=== PATIENT | male | born 1955 | race Caucasian/White ===

== ENCOUNTER 2018-08-22 17:23 | Inpatient (IN) | payer OTHER ==
--- NOTE | 2018-08-22 17:48 | PDOC ---
History of Present Illness - General Stated Complaint: COUGH,ELEVATED BLOOD PRESSURE,FEVER Time Seen by Provider: 08/22/18 17:36 - History of Present Illness Initial Comments: 08/22/18 18:34 The patient is a 63 year old male who denies any PMH who presents for evaluation of cough, fever and high blood pressure. The patient is accompanied by his who assists in providing the history. They note that the patient has been experiencing a non-productive cough with associated fevers over the past 6 days. He notes that his was ill with similar symptoms, however her symptoms improved and the patient's symptoms worsened. The patient presented to an urgent care today who then referred the patient to the ED for further evaluation. The patient reports some associated shortness of breath but otherwise denies chills, chest pain, nausea, vomiting, abdominal pain, or changes with urination or bowel movements. Past History - Past Medical History Allergies/Adverse Reactions: Allergies Allergy/AdvReac Type Severity Reaction Status Date / Time No Known Allergies Allergy Verified 08/22/18 18:42 Home Medications: Ambulatory Orders Aspirin [Aspirin EC] 325 mg PO DAILY 08/22/18 Review of Systems - Review of Systems Comments:: 08/22/18 18:37 Constitutional: Body aches, Fevers, Fatigue. HEENT: No Rhinorrhea, nasal congestion, visual changes Cardiovascular: No chest pain, syncope, palpitations, lightheadedness Respiratory: Cough, SOB. No Hemoptysis, Gastrointestinal: No Abdominal pain, Nausea, Vomiting, Constipation, Diarrhea, Melena Genitourinary: No Dysuria, Frequency, Urgency, Hesitancy, Hematuria, Flank pain Musculoskeletal: No Myalgia, arthralgia Skin: No rashes, itching, bruising, pallor Neurologic: No Headache, Dizziness, Numbness, Weakness, or Tingling Psychiatric: No Hallucinations. No SI or HI *Physical Exam - Physical Exam Comments: 08/22/18 18:37 General Appearance: Nourished. In Mild Apparent Distress HEENT: EOMI, ELAINE. No Pharyngeal Erythema, Tonsillar Exudate, Tonsillar Erythema Neck: No Cervical Lymphadenopathy Respiratory/Chest: Course breath sounds bilaterally with bilateral rhonchi. No Wheezing. Cardiovascular: Regular Rhythm, Tachycardic Rate. No Murmur, Gallops, Rubs Gastrointestinal/Abdominal: Normal Bowel Sounds, Soft. No Guarding, Rebound, Tenderness Musculoskeletal: No CVA Tenderness Extremity: Normal Capillary Refill Integumentary: Normal Color, Dry, Warm Neurologic: Fully Oriented, Alert, Normal Mood/Affect, Normal Response, ED Treatment Course - LABORATORY CBC & Chemistry Diagram: 08/22/18 18:00 08/22/18 18:00 Medical Decision Making - Medical Decision Making 08/22/18 18:38 The patient is a 63 year old male who denies any PMH who presents for evaluation of cough, fever and high blood pressure. Differential includes but is not limited to: Sepsis, Pneumonia, Influenza, Infectious, Metabolic Derangement. Given the patient's history and physical exam, we will obtain a cbc, cmp, troponin, coags, blood cultures, ua, urine cultures, chest plain film , ekg. We will treat with iv fluids, tylenol and continue to monitor and reassess while here in the ED. The patient will likely require admission for further management. 08/22/18 20:29 CBC is unremarkable. CMP is unremarkable. Troponin is elevated to 0.12. Influenza swab is positive for Influenza A. The patient's tachycardia did not improve after iv fluids and tylenol. 20mg of IV Cardizem was given with improvement in the patient's HR to 110. Repeat EKG demonstrates aflutter with rvr. An additional 30mg PO cardizem was given as well. We discussed the case with Dr. Culver with Cardiology who does not recommend anti-coagulation at this time until the patient is evaluated by cardiology. We discussed the case with the admitting team who accepted the patient for admission. *DC/Admit/Observation/Transfer Diagnosis at time of Disposition: Influenza, Tachycardia, Elevated troponin - Discharge Dispostion Condition at time of disposition: Stable Decision to Admit order: Yes - Referrals - Patient Instructions - Post Discharge Activity
--- NOTE | 2018-08-22 18:03 | PDOC ---
Attending Attestation - Resident Resident Name: GabrielleGeovani - ED Attending Attestation I have performed the following: I have examined & evaluated the patient, The case was reviewed & discussed with the resident, I agree w/resident's findings & plan, Exceptions are as noted - HPI HPI: 08/22/18 18:15 63-year-old male who has been sick for the last 6 days with fever, nasal congestion, cough and diarrhea. His has similar symptoms but got better and his symptoms persisted so they went to urgent care today and was referred to the emergency department - Physicial Exam PE: 08/22/18 19:06 Diaphoretic, tachycardic 63-year-old male presents with productive cough Head normocephalic/atraumatic. Neck supple CVS tachycardia. Lungs no wheezing appreciated, no crackles, increased respiratory rate Abdomen protuberant,nontender Extremities no erythema, full range of motion. no cva tenderness Skin is warm and dry Neuro patient is alert and oriented 3, moving all extremities, no gross focal neural deficits psych appropriate 08/22/18 19:06 - Medical Decision Making 08/22/18 19:08 HPI This 63-year-old male who has been sick for 6 days with fever, cough, nasal congestion, diarrhea. His had similar symptoms and improved but his symptoms persisted and they went to an urgent care clinic who instructed then to go to the ER Social history: ,works as [employer], does not use tobacco, only surgery was tendon surgery on his legs as a child ROS no abdominal pain and denies any chest pain, +cough.+fever,Nasal congestion ,+diarrhea. He is tachycardic and febrile, but he is not hypoxic. He has a productive cough. Review of labs finds that he has a positive influenza A The heart rate upon arrival was 166 bpm. He had oral temperature of 102.7. Patient is receiving IV Tylenol, IV fluids,tamiflu 08/22/18 19:11 08/22/18 20:05 pt received cardizem IVP to control SVT Reviewing labs finds normal cbc Chemistries revelas elevated LFTs, -pt has elevated troponin which will be trended 08/22/18 20:20 Repeat ekg after cardizem reveals AFIB @ 118bpm. Pt has no previous h/o of atrial fib and needs anticoagulation .However at thsi time the landscape drafter, Dr Sanchez, does not want any anticoagulation given PT will be admitted to telemetry 08/22/18 21:02
[2018-08-22] MEDS ORDERED: ACETAMINOPHEN INJECTION 100 ML IVPB ONE (18:04)
[2018-08-22] MEDS ORDERED: ACETAMINOPHEN 1000 MG/100 ML VIAL (NON FORMULARY) IVPB ONE (18:08)
[2018-08-22] MEDS ORDERED: SODIUM CHLORIDE 1,000 ML IV STA ×2 (18:08)
[2018-08-22 18:36] LABS: BASO % 0.3 % (0-2.0); HEMATOCRIT 41.8 % (35.4-49); HEMOGLOBIN 14.6 GM/dL (11.7-16.9); MCH 29.2 pg (25.7-33.7); MCHC 34.9 g/dl (32.0-35.9); MEAN CELL VOLUME 83.5 fl (80-96); MEAN PLT VOLUME 10.4 fl (7.5-11.1); NEUT % 70.7 % (42.8-82.8); PLATELET COUNT 210 K/MM3 (134-434); RBC 5.01 M/mm3 (4.00-5.60); RDW 13.5 % (11.9-15.9); WHITE BLOOD COUNT 4.3 K/mm3 (4.0-10.0)
[2018-08-22 18:40] LABS: VENOUS PC02 42.4 mmHg (38-52); VENOUS PH 7.43 (7.32-7.42); VENOUS PO2 38.5 mmHg (28-48)
[2018-08-22 18:55] LABS: INR 1.11 (0.83-1.09); PROTHROMBIN TIME (PATIENT) 13.1 SEC (9.7-13.0)
[2018-08-22 18:58] LABS: ACTIVATED PTT 33.4 SECONDS (25.2-36.5)
[2018-08-22] MEDS ORDERED: OSELTAMIVIR PHOSPHATE 75 MG CAPSULE PO ONE (19:05)
[2018-08-22] MEDS ORDERED: dilTIAZem HCL 50 MG/10 ML - 10 ML VIAL IVPUSH ONE (19:24)
[2018-08-22] MEDS ORDERED: OSELTAMIVIR PHOSPHATE 75 MG CAPSULE ONE (19:26)
[2018-08-22] MEDS ORDERED: dilTIAZem HCL 50 MG/10 ML - 10 ML VIAL ONE (19:31)
[2018-08-22 19:59] LABS: ALBUMIN 3.1 g/dl (3.4-5.0); ALK PHOS 46 U/L (45-117); ANION GAP 8 MMOL/L (8-16); BILIRUBIN,TOTAL 0.6 mg/dL (0.2-1); BLOOD UREA NITROGEN 15 mg/dL (7-18); CALCIUM 8.1 mg/dL (8.5-10.1); CHLORIDE 99 mmol/L (98-107); CO2 28 mmol/L (21-32); GLUCOSE,RANDOM 148 mg/dL (74-106); SGOT/AST 66 U/L (15-37); SGPT/ALT 86 U/L (13-61); SODIUM 135 mmol/L (136-145); TOT PROT 6.5 g/dl (6.4-8.2)
[2018-08-22] MEDS ORDERED: dilTIAZem HCL 30 MG TABLET (FP) PO ONE (20:09)
[2018-08-22] MEDS ORDERED: dilTIAZem HCL 30 MG TABLET (FP) ONE ×2 (20:12→23:42)
--- NOTE | 2018-08-22 21:21 | PN ---
Teaching Attending Note Name of Resident: Mari Tucker ATTENDING PHYSICIAN STATEMENT I saw and evaluated the patient. I reviewed the resident's note and discussed the case with the resident. I agree with the resident's findings and plan as documented. SUBJECTIVE: Patient is a 63 year old man with no significant PMH who presents for evaluation of cough, fever and high blood pressure. The patient is accompanied by his who assists in providing the history. They note that the patient has been experiencing a non-productive cough with associated fevers over the past 6 days. He notes that his was ill with similar symptoms, however her symptoms improved and the patient's symptoms worsened. The patient presented to an urgent care today who then referred the patient to the ED for further evaluation. The patient reports some associated shortness of breath but otherwise denies chills, chest pain, vomiting, abdominal pain, or dysuria. OBJECTIVE: Alert Vital Signs Period Temp Pulse Resp BP Sys/Luque Pulse Ox Last 24 Hr 102.7 F 166-169 26-26 148-152/90-115 99-99 HEENT: No Jaundice, eye redness or discharge, PERRLA, EOMI. Normocephalic, atraumatic. External ears are normal and hearing is grossly intact. No nasal discharge. Neck: Supple, nontender. No palpable adenopathy or thyromegaly. No JVD Chest: Good effort. Clear to auscultation and percussion. Heart: Regular. No S3, rub or murmur Abdomen: Not distended, soft, nontender and no HSM. No rebound or guarding. Normoactive bowel sounds. Ext: Peripheral pulses intact. No leg edema. Skin: Warm and dry. No petechiae, rash or ecchymosis. Neuro: Alert. Oriented x3. CN 2-12 grossly intact. Sensation grossly intact in all four extremities and DTR are symmetric. Home Medications Medication Instructions Recorded Aspirin [Aspirin EC] 325 mg PO DAILY 08/22/18 Abnormal Lab Results 08/22/18 08/22/18 08/22/18 18:00 18:00 18:00 Monocytes % 15.0 H PT with INR 13.10 H INR 1.11 H VBG pH 7.43 H Mixed VBG HCO3 28.0 H Sodium Random Glucose Calcium AST ALT Troponin I Albumin Influenza A (Rapid) 08/22/18 08/22/18 18:00 18:00 Monocytes % PT with INR INR VBG pH Mixed VBG HCO3 Sodium 135 L Random Glucose 148 H Calcium 8.1 L AST 66 H ALT 86 H Troponin I 0.12 H Albumin 3.1 L Influenza A (Rapid) Positive A ASSESSMENT AND PLAN: 1. Viral syndrome - Positive for Influenza A and started on Tamiflu. CXR shows cardiomegaly and increased interstitial markings. Treated with IV cardiazem for new onset Afib. No anticoagulation for now as per cardiology. Elevated troponin likely due to demand ischemia -will trend and rule out ACS. Will trend elevated LFTs, get hepatitis serology and upper abdominal sonogram. Will get urine legionella antigen, HbA1c, ECHO, monitor on telemetry and continue gentle IV fluids. No indication for antibiotics at this time. 2. Obesity - Will provide patient all the necessary assistance, counseling and positive reinforcement to facilitate weight loss. Consult greenskeeper supervisor. 3. DVT prophylaxis - Lovenox 40 mg SQ q 24 hours. 4. Advance directives - Full code
[2018-08-22] MEDS ORDERED: ACETAMINOPHEN 1000 MG/100 ML VIAL (NON FORMULARY) IVPB PRN (23:19)
[2018-08-22] MEDS ORDERED: METOPROLOL TARTRATE 5 MG/5 ML VIAL IVPUSH PRN (23:20)
[2018-08-22] MEDS ORDERED: SODIUM CHLORIDE 1,000 ML IV SCH (23:30)
[2018-08-22 23:35] LABS: URINE APPEARANCE CLEAR; URINE BILIRUBIN NEGATIVE (<2.0 mg/dL); URINE COLOR YELLOW; URINE GLUCOSE (UA) 1+ (NEGATIVE); URINE KETONE NEGATIVE (NEGATIVE); URINE LEUK ESTERASE NEGATIVE (NEGATIVE); URINE NITRITE NEGATIVE (NEGATIVE); URINE PROTEIN 1+ (NEGATIVE); URINE UROBILINOGEN NEGATIVE mg/dL (0.2-1.0)
[2018-08-22 23:46] LABS: EPI CELLS RARE /HPF (FEW); URINE MUCUS FEW
--- NOTE | 2018-08-23 00:01 | HP ---
CHIEF COMPLAINT: Fever PCP: None HISTORY OF PRESENT ILLNESS: 63 y/o M with no significant PMHx presents with fever. Patient is a Longshoreman , and the weekend of the , patient felt a dry, nonproductive cough. Shortly after he experienced a fever measuring 103 degrees. He has tried OTC medications which provided minimal relief. Patients had a similar illness however her sx's improved. Patient then visited the Urgent care and was prompted to visit the ED. Additionally he experienced Diarrhea (2 loose BMs x 2 days, No recent Abx use), SOB, Lightheadedness, Dec PO Intake. Patient did not receive a flu shot this year and has no hx of flu. Of note, patient has not followed with a PCP in years. Denies any associated chills, chest pain, nausea, vomiting, constipation. ER course was notable for: (1) Cardizem 30PO, 20IV (2) Tamiflu 75 (3) NS 2L Recent Travel: Denies PAST MEDICAL HISTORY: Denies PAST SURGICAL HISTORY: Tendon sx b/l Social History: Smoking: Quit 25 years ago; 1/2 ppd x 20 years prior Alcohol: Occasionally on Holidays Drugs: Denies Occupation: [employer] Ambulation: Without assistance Residence: House with Family History: Denies Allergies No Known Allergies Allergy (Verified 08/22/18 18:42) HOME MEDICATIONS: Home Medications Medication Instructions Recorded Aspirin [Aspirin EC] 325 mg PO DAILY 08/22/18 REVIEW OF SYSTEMS As per HPI PHYSICAL EXAMINATION Vital Signs - 24 hr 08/22/18 08/22/18 08/22/18 17:30 18:00 18:51 Temperature 102.7 F H Pulse Rate 166 H Pulse Rate [ 169 H Apical] Respiratory 26 H 26 H Rate Blood Pressure 152/115 H Blood Pressure 148/90 [Right Arm] O2 Sat by Pulse 99 99 99 Oximetry (%) 08/22/18 19:36 Temperature Pulse Rate Pulse Rate [ Apical] Respiratory Rate Blood Pressure Blood Pressure [Right Arm] O2 Sat by Pulse 100 Oximetry (%) GENERAL: A&Ox3, NAD HEAD: NCAT EYES: PERRL, EOMI EARS, NOSE, THROAT: Oropharynx clear without exudates. Moist mucous membranes. NECK: No JVD LUNGS: Rhonchi throughout, on 2L NC HEART: Tachycardic, normal S1 and S2 without murmur ABDOMEN: Obese, Soft, nontender, not distended, + bowel sounds, no guarding MUSCULOSKELETAL: No CVA tenderness. EXTREMITIES: 2+ pulses, Trace edema. NEUROLOGICAL: Cranial nerves II-XII intact. Normal speech. SKIN: Warm, dry Laboratory Results - last 24 hr 08/22/18 08/22/18 08/22/18 18:00 18:00 18:00 WBC 4.3 RBC 5.01 Hgb 14.6 Hct 41.8 MCV 83.5 MCH 29.2 MCHC 34.9 RDW 13.5 Plt Count 210 MPV 10.4 Absolute Neuts (auto) 3.1 Neutrophils % 70.7 Lymphocytes % 14.0 Monocytes % 15.0 H Eosinophils % 0.0 Basophils % 0.3 Nucleated RBC % 0 PT with INR 13.10 H INR 1.11 H PTT (Actin FS) 33.4 VBG pH 7.43 H POC VBG pCO2 42.4 POC VBG pO2 38.5 Mixed VBG HCO3 28.0 H Sodium Potassium Chloride Carbon Dioxide Anion Gap BUN Creatinine Creat Clearance w eGFR Random Glucose Lactic Acid Calcium Total Bilirubin AST ALT Alkaline Phosphatase Troponin I Total Protein Albumin Urine Color Urine Appearance Urine pH Ur Specific [place] Urine Protein Urine Glucose (UA) Urine Ketones Urine Blood Urine Nitrite Urine Bilirubin Urine Urobilinogen Ur Leukocyte Esterase Urine WBC (Auto) Urine RBC (Auto) Ur Epithelial Cells Urine Mucus Influenza A (Rapid) Influenza B (Rapid) 08/22/18 08/22/18 08/22/18 18:00 18:00 18:00 WBC RBC Hgb Hct MCV MCH MCHC RDW Plt Count MPV Absolute Neuts (auto) Neutrophils % Lymphocytes % Monocytes % Eosinophils % Basophils % Nucleated RBC % PT with INR INR PTT (Actin FS) VBG pH POC VBG pCO2 POC VBG pO2 Mixed VBG HCO3 Sodium 135 L Potassium 4.0 Chloride 99 Carbon Dioxide 28 Anion Gap 8 BUN 15 Creatinine 1.0 Creat Clearance w eGFR > 60 Random Glucose 148 H Lactic Acid 1.6 Calcium 8.1 L Total Bilirubin 0.6 AST 66 H ALT 86 H Alkaline Phosphatase 46 Troponin I 0.12 H Total Protein 6.5 Albumin 3.1 L Urine Color Urine Appearance Urine pH Ur Specific Elon Urine Protein Urine Glucose (UA) Urine Ketones Urine Blood Urine Nitrite Urine Bilirubin Urine Urobilinogen Ur Leukocyte Esterase Urine WBC (Auto) Urine RBC (Auto) Ur Epithelial Cells Urine Mucus Influenza A (Rapid) Positive A Influenza B (Rapid) Negative 08/22/18 23:20 WBC RBC Hgb Hct MCV MCH MCHC RDW Plt Count MPV Absolute Neuts (auto) Neutrophils % Lymphocytes % Monocytes % Eosinophils % Basophils % Nucleated RBC % PT with INR INR PTT (Actin FS) VBG pH POC VBG pCO2 POC VBG pO2 Mixed VBG HCO3 Sodium Potassium Chloride Carbon Dioxide Anion Gap BUN Creatinine Creat Clearance w eGFR Random Glucose Lactic Acid Calcium Total Bilirubin AST ALT Alkaline Phosphatase Troponin I Total Protein Albumin Urine Color Yellow Urine Appearance Clear Urine pH 5.0 Ur Specific Elon 1.017 Urine Protein 1+ H Urine Glucose (UA) 1+ H Urine Ketones Negative Urine Blood 1+ H Urine Nitrite Negative Urine Bilirubin Negative Urine Urobilinogen Negative Ur Leukocyte Esterase Negative Urine WBC (Auto) 1 Urine RBC (Auto) None Ur Epithelial Cells Rare Urine Mucus Few Influenza A (Rapid) Influenza B (Rapid) ASSESSMENT/PLAN: 63 y/o M with no significant PMHx presents with fever #Fever + Monocytosis -Likely due to Influenza -Lactic acid 1.6 -CXR: No infiltrate, Possibly increased interstitial markings -Influenze Positive and started on Tamiflu in ED -Urine Legionella Antigen, Blood and Urine cx pending -Continue Ofirmev -NS @ 75 mls/hr -No indication for ABx at this time #New Onset AFib -HR 169 on arrival; Given Cardizem and HR 110-120 -[id number] 0, HASBLED 2 -Cardizem 30mg PO Q6H -Lopressor 5mg IV PRN for HR > 120 -ASA 81mg daily -Cardiology (Dr. Wood) Consulted -Echo #Elevated Troponin -Likely Demand -Trend Trop and EKG #Elevated Blood Glucose -Possibly due to DM -UA reveals 1+ Protein, 1+ Glucose -A1c pending #Elevated INR + Transaminitis -Unclear Etiology -RUQ US, Hepatitis panel, UTox pending #FEN -IV NS @ 75 mls/hr -Lytes WNL -Sodium Controlled diet #PPx -DVT: Lovenox Dispo: Admit to Tele Visit type - Emergency Visit Emergency Visit: Yes ED Registration Date: 08/22/18 Care time: The patient presented to the Emergency Department on the above date and was hospitalized for further evaluation of their emergent condition. - New Patient This patient is new to me today: Yes Date on this admission: 08/23/18 - Critical Care Critical Care patient: No
[2018-08-23] MEDS: dilTIAZem HCL 30 MG TABLET (FP) PO SCH ×2 (00:04→06:23)
[2018-08-23 01:12] LABS: COCAINE, UR NEGATIVE ng/ml (CUTOFF=300); METHADONE, UR NEGATIVE ng/ml (CUTOFF=300); OPIATES, URI NEGATIVE ng/ml (CUTOFF=300); PHENCYCLIDINE,URINE NEGATIVE ng/ml (CUTOFF=25); URINE AMPHETAMINES NEGATIVE ng/ml (CUTOFF=500); URINE BARBITURATES NEGATIVE ng/ml (CUTOFF=200); URINE BENZODIAZEPINES NEGATIVE ng/ml (CUTOFF=200)
[2018-08-23] MEDS ORDERED: ACETAMINOPHEN 500 MG TABLET (FP) PO STA (01:14)
[2018-08-23] MEDS ORDERED: ACETAMINOPHEN 325 MG TABLET (FP) ONE (01:15)
[2018-08-23] MEDS ORDERED: dilTIAZem HCL 30 MG TABLET (FP) ONE (06:21)
[2018-08-23 06:32] LABS: BASO % 0.3 % (0-2.0); EOS % 0.2 % (0-4.5); HEMATOCRIT 40.6 % (35.4-49); HEMOGLOBIN 14.3 GM/dL (11.7-16.9); LYMPH % 28.3 % (8-40); MCH 29.7 pg (25.7-33.7); MCHC 35.2 g/dl (32.0-35.9); MEAN CELL VOLUME 84.4 fl (80-96); MEAN PLT VOLUME 10.3 fl (7.5-11.1); MONO % 16.9 % (3.8-10.2); NEUT % 54.3 % (42.8-82.8); PLATELET COUNT 182 K/MM3 (134-434); RBC 4.81 M/mm3 (4.00-5.60); RDW 13.5 % (11.9-15.9); WHITE BLOOD COUNT 4.1 K/mm3 (4.0-10.0)
[2018-08-23 07:11] LABS: ALBUMIN 2.6 g/dl (3.4-5.0); ALK PHOS 37 U/L (45-117); ANION GAP 6 MMOL/L (8-16); BILIRUBIN,TOTAL 0.6 mg/dL (0.2-1); BLOOD UREA NITROGEN 12 mg/dL (7-18); CALCIUM 7.2 mg/dL (8.5-10.1); CHLORIDE 102 mmol/L (98-107); CO2 28 mmol/L (21-32); CREATININE 0.8 mg/dL (0.55-1.3); GLUCOSE,RANDOM 110 mg/dL (74-106); POTASSIUM 3.8 mmol/L (3.5-5.1); SGOT/AST 51 U/L (15-37); SGPT/ALT 67 U/L (13-61); SODIUM 136 mmol/L (136-145); TOT PROT 5.6 g/dl (6.4-8.2)
[2018-08-23] MEDS ORDERED: ASPIRIN 81 MG CHEWABLE TABLETS ONE (08:18)
[2018-08-23] MEDS ORDERED: ENOXAPARIN NA (PORCINE) 40 MG/0.4 ML DISP.SYRIN SQ ONE (08:18)
[2018-08-23] MEDS ORDERED: METOPROLOL TARTRATE 5 MG/5 ML VIAL ONE (09:04)
[2018-08-23] MEDS ORDERED: OSELTAMIVIR PHOSPHATE 75 MG CAPSULE ONE ×2 (09:06→23:02)
[2018-08-23] MEDS: OSELTAMIVIR PHOSPHATE 75 MG CAPSULE PO SCH ×2 (09:17→23:07)
--- NOTE | 2018-08-23 09:41 | EKG ---
Test Reason : Blood Pressure : / mmHG Vent. Rate : 118 BPM Atrial Rate : 394 BPM P-R Int : 000 ms QRS Dur : 084 ms QT Int : 360 ms P-R-T Axes : 000 -07 016 degrees QTc Int : 504 ms ATRIAL FIBRILLATION WITH RAPID VENTRICULAR RESPONSE NONSPECIFIC T WAVE ABNORMALITY ABNORMAL ECG WHEN COMPARED WITH ECG OF 22-AUG-2018 20:05, T WAVE VARIATION Confirmed by ZAHIRA LUTHER MD ([id number]) on 08/23/2018 9:41:04 AM Referred By: Confirmed By:ZAHIRA LUTHER MD
--- NOTE | 2018-08-23 09:42 | EKG ---
Test Reason : Blood Pressure : / mmHG Vent. Rate : 166 BPM Atrial Rate : 170 BPM P-R Int : 000 ms QRS Dur : 100 ms QT Int : 320 ms P-R-T Axes : 000 002 069 degrees QTc Int : 531 ms PROBABLE ATRIAL FLUTTER WITH 2:1 AV BLOCK AND RAPID VENTRICULAR RESPONSE SEPTAL INFARCT , AGE UNDETERMINED ABNORMAL ECG NO PREVIOUS ECGS AVAILABLE Confirmed by ZAHIRA LUTHER MD ([id number]) on 08/23/2018 9:41:46 AM Referred By: Confirmed By:ZAHIRA LUTHER MD
--- NOTE | 2018-08-23 09:51 | PN ---
Teaching Attending Note Name of Resident: Shawna Thacker ATTENDING PHYSICIAN STATEMENT I saw and evaluated the patient. I reviewed the resident's note and discussed the case with the resident. I agree with the resident's findings and plan as documented. SUBJECTIVE: Patient is comfortable with no acute distress. no nausea or vomiting, positive for diarrhea. OBJECTIVE: Vital Signs Temperature 98.2 F 08/23/18 06:15 Pulse Rate 155 H 08/23/18 09:04 Respiratory Rate 19 08/23/18 06:15 Blood Pressure 167/64 08/23/18 09:04 O2 Sat by Pulse Oximetry (%) 99 08/23/18 06:15 GENERAL: AAOx3, NAD HEAD: NCAT, EYES: PERRL, EOMI, ENT: Oropharynx clear without exudates. MMM. NECK: No JVD LUNGS: decreased air entery bl , on 2L NC HEART: Tachycardic, normal S1 and S2 without murmur ABDOMEN: Obese, Soft, nontender, not distended, + bowel sounds, no guarding MUSCULOSKELETAL: No CVA tenderness. EXTREMITIES: 2+ pulses, Trace edema. NEUROLOGICAL: Cranial nerves II-XII intact. Normal speech. SKIN: Warm, dry. CBCD WBC 4.1 K/mm3 (4.0-10.0) 08/23/18 05:00 RBC 4.81 M/mm3 (4.00-5.60) 08/23/18 05:00 Hgb 14.3 GM/dL (11.7-16.9) 08/23/18 05:00 Hct 40.6 % (35.4-49) 08/23/18 05:00 MCV 84.4 fl (80-96) 08/23/18 05:00 MCHC 35.2 g/dl (32.0-35.9) 08/23/18 05:00 RDW 13.5 % (11.9-15.9) 08/23/18 05:00 Plt Count 182 K/MM3 (134-434) 08/23/18 05:00 MPV 10.3 fl (7.5-11.1) 08/23/18 05:00 CMP Sodium 136 mmol/L (136-145) 08/23/18 06:00 Potassium 3.8 mmol/L (3.5-5.1) 08/23/18 06:00 Chloride 102 mmol/L (98-107) 08/23/18 06:00 Carbon Dioxide 28 mmol/L (21-32) 08/23/18 06:00 Anion Gap 6 MMOL/L (8-16) L 08/23/18 06:00 BUN 12 mg/dL (7-18) 08/23/18 06:00 Creatinine 0.8 mg/dL (0.55-1.3) 08/23/18 06:00 Creat Clearance w eGFR > 60 (>60) 08/23/18 06:00 Random Glucose 110 mg/dL (74-106) H 08/23/18 06:00 Calcium 7.2 mg/dL (8.5-10.1) L 08/23/18 06:00 Total Bilirubin 0.6 mg/dL (0.2-1) 08/23/18 06:00 AST 51 U/L (15-37) H 08/23/18 06:00 ALT 67 U/L (13-61) H 08/23/18 06:00 Alkaline Phosphatase 37 U/L (45-117) L 08/23/18 06:00 Total Protein 5.6 g/dl (6.4-8.2) L 08/23/18 06:00 Albumin 2.6 g/dl (3.4-5.0) L 08/23/18 06:00 CARDIAC ENZYMES Troponin I 0.12 ng/ml (0.00-0.05) H 08/22/18 18:00 Current Medications Generic Name Dose Route Start Last Admin Trade Name Freq PRN Reason Stop Dose Admin Acetaminophen 1,000 mg 08/22/18 23:19 Ofirmev Injection - IVPB Q6H PRN FEVER Aspirin 81 mg 08/23/18 10:00 08/23/18 09:05 Asa - PO 81 mg DAILY CARISSA Administration Diltiazem HCl 30 mg 08/23/18 00:00 08/23/18 06:23 Cardizem - PO 30 mg Q6HPO CARISSA Administration Enoxaparin Sodium 40 mg 08/23/18 10:00 08/23/18 09:05 Lovenox - SQ 40 mg DAILY CARISSA Administration Sodium Chloride 1,000 mls @ 75 mls/hr 08/22/18 23:30 08/23/18 00:03 Normal Saline - IV 75 mls/hr ASDIR CARISSA Administration Insulin Aspart 1 vial 08/23/18 11:00 Novolog Vial Sliding Scale - SQ TIDAC [facility] Protocol Metoprolol Tartrate 5 mg 08/22/18 23:20 08/23/18 09:04 Lopressor Injection - IVPUSH 5 mg Q4H PRN Administration HYPERTENSION Oseltamivir Phosphate 75 mg 08/23/18 10:00 08/23/18 09:17 Tamiflu - PO 08/28/18 09:59 75 mg BID CARISSA Administration Home Medications Medication Instructions Recorded Aspirin [Aspirin EC] 325 mg PO DAILY 08/22/18 EKG: Afib with RVR, rat of 118, Qtc 504 ASSESSMENT AND PLAN: Patient is a 63 year old man with no significant PMHx who presented for having cough, fever over the past 6 days and was found to have Afib with RVR. # Afib with RVR: on Cardiazem po and Lopressor IV , cardio consult , will get echo. # Elevated troponins demand ischemia: continue to monitor # Viral syndrome - Positive for Influenza A and started on Tamiflu. CXR shows cardiomegaly and increased interstitial markings. # HTN Uncontrolled: on cardizem and lopressor IV # New onset DM with hemoglobin A1c of 7.0 , with blood sugar of 110's, will start him on ss with coverage # Obesity - with BMi of 36 , Consult tipple tender. DVT prophylaxis - Lovenox 40 mg SQ q 24 hours. Full code
[2018-08-23] MEDS ORDERED: ASPIRIN 81 MG CHEWABLE TABLETS PO SCH (10:00)
[2018-08-23] MEDS ORDERED: ENOXAPARIN NA (PORCINE) 40 MG/0.4 ML DISP.SYRIN SQ SCH (10:00)
--- NOTE | 2018-08-23 10:28 | CON.CARD ---
Consult Consult Specialty:: cardio Reason for Consultation:: elevated troponin - History of Present Illness Chief Complaint: cough, fever History of Present Illness: 63 M here for cough, fever and high blood pressure. cough began 10d ago. no sob he says, if not coughing. denies cp, leg swelling ER notable findings: -temp 102.7 -BP up, to 160/123. -tachycardic to 160 bpm: given 20mg of IV Cardizem was given with improvement in the patient's HR to 110--repeat EKG demonstrates aflutter with rvr. An additional 30mg PO cardizem was given as well. Troponin is elevated to 0.12. Influenza swab is positive for Influenza A. AST/LT mildly elevated PMH: none known - Smoking History Smoking history: Former smoker Have you smoked in the past 12 months: No If you are a former smoker, when did you quit?: 40 years ago Home Medications - Allergies Allergies/Adverse Reactions: Allergies Allergy/AdvReac Type Severity Reaction Status Date / Time No Known Allergies Allergy Verified 08/22/18 18:42 - Home Medications Home Medications: Ambulatory Orders Aspirin [Aspirin EC] 325 mg PO DAILY 08/22/18 Family Disease History - Family Disease History Family History: Denies (no known cmp) Review of Systems - Review of Systems Constitutional: denies: Chills, Fever Eyes: denies: Eye Pain HENT: denies: Nasal Congestion Neck: denies: Stiffness Cardiovascular: denies: Palpitations Respiratory: reports: Cough. denies: Orthopnea, PND Gastrointestinal: denies: Diarrhea, Rectal Bleeding Genitourinary: denies: Burning, Hematuria Musculoskeletal: denies: Muscle Pain Integumentary: denies: Rash Neurological: denies: Numbness, Seizure, Syncope Endocrine: denies: Excessive Sweating Hematology/Lymphatic: denies: Excessive Bleeding Vital Signs: Vital Signs Temperature 98.2 F 08/23/18 06:15 Pulse Rate 155 H 08/23/18 09:04 Respiratory Rate 08/23/18 06:15 Blood Pressure 167/64 08/23/18 09:04 O2 Sat by Pulse Oximetry (%) 99 08/23/18 06:15 Constitutional: Yes: Well Nourished, No Distress Eyes: No: Sclera Icterus HENT: No: Nasal Congestion Neck: No: Decreased ROM Respiratory: Yes: Rhonchi (diffuse). No: Accessory Muscle Use, Wheezes Gastrointestinal: Yes: Normal Bowel Sounds. No: Distention, Hepatomegaly, Palpable Mass, Tenderness Cardiovascular: Yes: Regular Rate and Rhythm JVD: No Carotid Bruit: No PMI: Non-Displaced Heart Sounds: Yes: S1, S2. No: Gallop Murmur: No: Systolic Murmur, Diastolic Murmur Musculoskeletal: Yes: Other (No kyphosis) Extremities: No: Cool, Cyanosis Edema: No Peripheral Pulses: 2+ Left Carotid, 2+ Right Carotid, 2+ Left Doralis Pedis, 2+ Right Dorsalis Pedis Integumentary: No: Jaundice Neurological: Yes: Alert, Oriented (x3) Psychiatric: No: Agitated - Other Data Labs, Other Data: CBC, BMP 08/23/18 05:00 08/23/18 06:00 INR, PTT INR 1.11 (0.83-1.09) H 08/22/18 18:00 Troponin, BNP 08/22/18 18:00 Troponin I 0.12 H Troponin, BNP 08/22/18 18:00 Troponin I 0.12 H Laboratory Tests 08/22/18 08/23/18 08/23/18 18:00 05:00 06:00 WBC 4.1 Hgb 14.3 Plt Count 182 Sodium 136 Potassium 3.8 Carbon Dioxide 28 BUN 12 Creatinine 0.8 Hemoglobin A1c % AST 51 H ALT 67 H Troponin I 0.12 H 08/23/18 06:00 WBC Hgb Plt Count Sodium Potassium Carbon Dioxide BUN Creatinine Hemoglobin A1c % 7.0 H AST ALT Troponin I Assessment/Plan ECG #1: SVT 160s bpm (? long R-P), nonsp ST-Ts (no prior) ECG #2: afib > flutter, nonsp TWAs CXR: some congestive changes. no effusion. no infiltrate. flu A: -per hospitalist -no signs/sx suspicious for chf afib/flutter, rapid HR: -new dx, in setting of acute sepsis/hi fever from flu -HR responded to cardizem in ER, continue 60 q6h as doing -check echo -CHADS VASC 2 (dx HTN urgency, DM here). -d/w'd pt who denies etoh, falls/head trauma, hi risk activities, PUD, GIB or other bleeding history. advised relative risk of cva vs bleed from AC. doesn't want warfarin b/c mother was on this and caused complications. reviewed data with him regarding NOAC vs warfarin--agrees to NOAC. -ok to start AC now as his diast BP is <110...start xarelto (for qd dosing--to max compliance) hypertensive urgency: -no prior known dx of HTN -BP very elevated here initially (diastolic)--now improved -cont diltiazem as ordered -trend BP--low threshold add ARB elev trop -trop 0.12 = indeterminate range -trend serial labs -ECG x 2 non-ischemic. -check echo DM: -new dx -A1c 7.0 -per hospitalist elev LFTs: -transaminases mildly up--viral syndrome? -per hospitalist
[2018-08-23] MEDS ORDERED: dilTIAZem HCL 60 MG TABLET (FP) ONE ×3 (11:50→23:02)
[2018-08-23] MEDS: dilTIAZem HCL 60 MG TABLET (FP) PO SCH ×3 (11:53→23:07)
[2018-08-23] MEDS: SODIUM CHLORIDE 0.45% 1,000 ML IV SCH (11:53)
[2018-08-23] MEDS: INSULIN SLIDING SCALE (NOVOLOG) 1 VIAL SQ SCH ×2 (12:32→16:18)
--- NOTE | 2018-08-23 13:25 | PN ---
Progress Note (short form) - Note Progress Note: ID consult dictated 63 yo man with cough and fever since August 18 with similar symptoms has not had medical care for last several years Influenza A hypoxia- may all be influenza but will add rocephin to cover for CAP repeat cxray cxray congestive changes abnl lfts- most likely due to influenza, check cpk please tachycardia- aflutter with RVR new onset diabetes droplet isolation tamiflu 75 bid cardiology evaluation rocephin Problem List - Problems (1) Influenza A Code(s): J10.1 - FLU DUE TO OTH IDENT INFLUENZA VIRUS W OTH RESP MANIFEST (2) Tachycardia Code(s): R00.0 - TACHYCARDIA, UNSPECIFIED (3) Abnormal LFTs Code(s): R94.5 - ABNORMAL RESULTS OF LIVER FUNCTION STUDIES (4) Pneumonia Code(s): J18.9 - PNEUMONIA, UNSPECIFIED ORGANISM
--- NOTE | 2018-08-23 15:08 | PN ---
Physical Exam: SUBJECTIVE: Patient seen and examined at bedside this morning. Patient presented with cough and fever and was positive for influenza A. At the ED, patient was noted to be tachycardic at 150s. He denies chest pain, SOB, palpitations, nausea, vomiting, abdominal pain, diarrhea, urinary symptoms. OBJECTIVE: Vital Signs Temperature 98.4 F 08/23/18 10:58 Pulse Rate 125 H 08/23/18 10:58 Respiratory Rate 18 08/23/18 10:58 Blood Pressure 148/80 08/23/18 10:58 O2 Sat by Pulse Oximetry (%) 99 08/23/18 10:58 GENERAL: The patient is awake, alert, and fully oriented, on 2L NC HEAD: Normal with no signs of trauma. EYES: PERRLA, EOMI, sclerae anicteric, conjunctivae clear. ENT: Ears normal, nares patent, oropharynx clear without exudates, dry mucous membranes. NECK: Trachea midline, full range of motion, supple. LUNGS:Coarse breath sounds bilaterally. No wheezing or crackles appreciated. HEART: Tachycardic, S1, S2 without murmur, rub or gallop. ABDOMEN: Soft, nontender, nondistended, normoactive bowel sounds. EXTREMITIES: 2+ pulses, warm, well-perfused, no edema NEUROLOGICAL: Cranial nerves II through XII grossly intact. Normal speech, gait not observed. PSYCH: Normal mood, normal affect. SKIN: Warm, dry, normal turgor, no rashes or lesions noted Laboratory Results - last 24 hr 08/22/18 08/22/18 08/22/18 18:00 18:00 18:00 WBC 4.3 RBC 5.01 Hgb 14.6 Hct 41.8 MCV 83.5 MCH 29.2 MCHC 34.9 RDW 13.5 Plt Count 210 MPV 10.4 Absolute Neuts (auto) 3.1 Neutrophils % 70.7 Lymphocytes % 14.0 Monocytes % 15.0 H Eosinophils % 0.0 Basophils % 0.3 Nucleated RBC % 0 PT with INR 13.10 H INR 1.11 H PTT (Actin FS) 33.4 VBG pH 7.43 H POC VBG pCO2 42.4 POC VBG pO2 38.5 Mixed VBG HCO3 28.0 H Sodium Potassium Chloride Carbon Dioxide Anion Gap BUN Creatinine Creat Clearance w eGFR POC Glucometer Random Glucose Hemoglobin A1c % Lactic Acid Calcium Phosphorus Magnesium Total Bilirubin AST ALT Alkaline Phosphatase Troponin I Total Protein Albumin Urine Color Urine Appearance Urine pH Ur Specific [place] Urine Protein Urine Glucose (UA) Urine Ketones Urine Blood Urine Nitrite Urine Bilirubin Urine Urobilinogen Ur Leukocyte Esterase Urine WBC (Auto) Urine RBC (Auto) Ur Epithelial Cells Urine Mucus Opiates Screen Methadone Screen Barbiturate Screen Phencyclidine Screen Ur Amphetamines Screen MDMA (Ecstasy) Screen Benzodiazepines Screen Cocaine Screen U Marijuana (THC) Screen Influenza A (Rapid) Influenza B (Rapid) 08/22/18 08/22/18 08/22/18 18:00 18:00 18:00 WBC RBC Hgb Hct MCV MCH MCHC RDW Plt Count MPV Absolute Neuts (auto) Neutrophils % Lymphocytes % Monocytes % Eosinophils % Basophils % Nucleated RBC % PT with INR INR PTT (Actin FS) VBG pH POC VBG pCO2 POC VBG pO2 Mixed VBG HCO3 Sodium 135 L Potassium 4.0 Chloride 99 Carbon Dioxide 28 Anion Gap 8 BUN 15 Creatinine 1.0 Creat Clearance w eGFR > 60 POC Glucometer Random Glucose 148 H Hemoglobin A1c % Lactic Acid 1.6 Calcium 8.1 L Phosphorus Magnesium Total Bilirubin 0.6 AST 66 H ALT 86 H Alkaline Phosphatase 46 Troponin I 0.12 H Total Protein 6.5 Albumin 3.1 L Urine Color Urine Appearance Urine pH Ur Specific [place] Urine Protein Urine Glucose (UA) Urine Ketones Urine Blood Urine Nitrite Urine Bilirubin Urine Urobilinogen Ur Leukocyte Esterase Urine WBC (Auto) Urine RBC (Auto) Ur Epithelial Cells Urine Mucus Opiates Screen Methadone Screen Barbiturate Screen Phencyclidine Screen Ur Amphetamines Screen MDMA (Ecstasy) Screen Benzodiazepines Screen Cocaine Screen U Marijuana (THC) Screen Influenza A (Rapid) Positive A Influenza B (Rapid) Negative 08/22/18 08/23/18 08/23/18 23:20 00:00 05:00 WBC 4.1 RBC 4.81 Hgb 14.3 Hct 40.6 MCV 84.4 MCH 29.7 MCHC 35.2 RDW 13.5 Plt Count 182 MPV 10.3 Absolute Neuts (auto) 2.2 Neutrophils % 54.3 D Lymphocytes % 28.3 D Monocytes % 16.9 H Eosinophils % 0.2 D Basophils % 0.3 Nucleated RBC % 0 PT with INR INR PTT (Actin FS) VBG pH POC VBG pCO2 POC VBG pO2 Mixed VBG HCO3 Sodium Potassium Chloride Carbon Dioxide Anion Gap BUN Creatinine Creat Clearance w eGFR POC Glucometer Random Glucose Hemoglobin A1c % Lactic Acid Calcium Phosphorus Magnesium Total Bilirubin AST ALT Alkaline Phosphatase Troponin I Total Protein Albumin Urine Color Yellow Urine Appearance Clear Urine pH 5.0 Ur Specific [place] 1.017 Urine Protein 1+ H Urine Glucose (UA) 1+ H Urine Ketones Negative Urine Blood 1+ H Urine Nitrite Negative Urine Bilirubin Negative Urine Urobilinogen Negative Ur Leukocyte Esterase Negative Urine WBC (Auto) 1 Urine RBC (Auto) None Ur Epithelial Cells Rare Urine Mucus Few Opiates Screen Negative Methadone Screen Negative Barbiturate Screen Negative Phencyclidine Screen Negative Ur Amphetamines Screen Negative MDMA (Ecstasy) Screen Negative Benzodiazepines Screen Negative Cocaine Screen Negative U Marijuana (THC) Screen Negative Influenza A (Rapid) Influenza B (Rapid) 08/23/18 08/23/18 08/23/18 06:00 06:00 12:25 WBC RBC Hgb Hct MCV MCH MCHC RDW Plt Count MPV Absolute Neuts (auto) Neutrophils % Lymphocytes % Monocytes % Eosinophils % Basophils % Nucleated RBC % PT with INR INR PTT (Actin FS) VBG pH POC VBG pCO2 POC VBG pO2 Mixed VBG HCO3 Sodium 136 Potassium 3.8 Chloride 102 Carbon Dioxide 28 Anion Gap 6 L BUN 12 Creatinine 0.8 Creat Clearance w eGFR > 60 POC Glucometer [id number] Random Glucose 110 H Hemoglobin A1c % 7.0 H Lactic Acid Calcium 7.2 L Phosphorus 4.0 Magnesium 2.0 Total Bilirubin 0.6 AST 51 H ALT 67 H Alkaline Phosphatase 37 L Troponin I Total Protein 5.6 L Albumin 2.6 L Urine Color Urine Appearance Urine pH Ur Specific [place] Urine Protein Urine Glucose (UA) Urine Ketones Urine Blood Urine Nitrite Urine Bilirubin Urine Urobilinogen Ur Leukocyte Esterase Urine WBC (Auto) Urine RBC (Auto) Ur Epithelial Cells Urine Mucus Opiates Screen Methadone Screen Barbiturate Screen Phencyclidine Screen Ur Amphetamines Screen MDMA (Ecstasy) Screen Benzodiazepines Screen Cocaine Screen U Marijuana (THC) Screen Influenza A (Rapid) Influenza B (Rapid) 08/23/18 13:40 WBC RBC Hgb Hct MCV MCH MCHC RDW Plt Count MPV Absolute Neuts (auto) Neutrophils % Lymphocytes % Monocytes % Eosinophils % Basophils % Nucleated RBC % PT with INR INR PTT (Actin FS) VBG pH POC VBG pCO2 POC VBG pO2 Mixed VBG HCO3 Sodium Potassium Chloride Carbon Dioxide Anion Gap BUN Creatinine Creat Clearance w eGFR POC Glucometer Random Glucose Hemoglobin A1c % Lactic Acid Calcium Phosphorus Magnesium Total Bilirubin AST ALT Alkaline Phosphatase Troponin I 0.07 H Total Protein Albumin Urine Color Urine Appearance Urine pH Ur Specific [place] Urine Protein Urine Glucose (UA) Urine Ketones Urine Blood Urine Nitrite Urine Bilirubin Urine Urobilinogen Ur Leukocyte Esterase Urine WBC (Auto) Urine RBC (Auto) Ur Epithelial Cells Urine Mucus Opiates Screen Methadone Screen Barbiturate Screen Phencyclidine Screen Ur Amphetamines Screen MDMA (Ecstasy) Screen Benzodiazepines Screen Cocaine Screen U Marijuana (THC) Screen Influenza A (Rapid) Influenza B (Rapid) Active Medications Generic Name Dose Route Start Last Admin Trade Name Freq PRN Reason Stop Dose Admin Acetaminophen 1,000 mg 08/22/18 23:19 Ofirmev Injection - IVPB Q6H PRN FEVER Diltiazem HCl 60 mg 08/23/18 10:35 08/23/18 11:53 Cardizem - PO 60 mg Q6HPO CARISSA Administration Sodium Chloride 1,000 mls @ 75 mls/hr 08/23/18 10:45 08/23/18 11:53 1/2 Normal Saline IV 75 mls/hr ASDIR CARISSA Administration Ceftriaxone Sodium 2 gm in 50 mls @ 100 mls/hr 08/23/18 15:15 Ceftriaxone 2 Gm-D5w Bag IVPB DAILY [facility] Protocol Insulin Aspart 1 vial 08/23/18 11:00 08/23/18 12:32 Novolog Vial Sliding Scale - SQ Not Given TIDAC [facility] Protocol Metoprolol Tartrate 5 mg 08/22/18 23:20 08/23/18 09:04 Lopressor Injection - IVPUSH 5 mg Q4H PRN Administration HYPERTENSION Oseltamivir Phosphate 75 mg 08/23/18 10:00 08/23/18 09:17 Tamiflu - PO 08/28/18 09:59 75 mg BID CARISSA Administration Rivaroxaban 20 mg 08/23/18 18:00 Xarelto - PO DAILY@1800 [facility] ASSESSMENT/PLAN: Patient is a 63 year old male with no significant past medical history, presented with fever and nonproductive cough for 6 days. At the ED, patient was noted to have A.fib with RVR #Sepsis 2/2 Flu -Influenza A - positive -ID (Dr. Hammer) consulted. Recommendations appreciated. -Continue Tamiflu 75 mg BID -Ceftriaxone 2gm daily started -CXR: no infiltrates, congestive changes -Blood and urine cx pending -Urine Legionella antigen -IV 1/2 NS @ 75 #New onset Atrial fibrillation -likely triggered by sepsis 2/2 flu -Cardizem increased to 60mg q6h -Echo -Cardiology (Dr. Wood) consulted. Recommendations appreciated. -CHADS VASc - 2 -Will start Xarelto 20mg daily #Hypertension -BP 160/123 -No prior hx of HTN -Cardizem increased to 60mg q6h -Iv Lopressor 5mg q4h PRN for tachycardia. -Cardiology consulted. Recommendations appreciated. -Monitor BP -Low threshold - may add ARB #Troponinemia -0.12 --> 0.07 -likely 2/2 demand ischemia -EKG: no ST-T wave abnormalities -Echo #Hyperglycemia -HbA1c 7.0 -BGM TIDAC -Insulin sliding scale implemented -Will need follow-up as outpatient for further management #Transaminitis -AST/ALT 51/67, improving -RUQ US: Slightly coarse echotexture of the liver, correlate with liver enzymes to rule out mild fatty infiltration. Multiple gallstones without sonographic evidence of acute cholecystitis. -Hepatitis panel -Urine toxicology - negative #FEN -IV 1/2 NS @ 75ml/hr -Electrolytes wnl, routine bmp monitoring -Diabetic diet, low fat and low sodium diet #Prophylaxis -Xarelto 20mg daily #Disposition -full code -admit to tele Visit type - Emergency Visit Emergency Visit: Yes ED Registration Date: 08/22/18 Care time: The patient presented to the Emergency Department on the above date and was hospitalized for further evaluation of their emergent condition. - New Patient This patient is new to me today: Yes Date on this admission: 08/23/18 - Critical Care Critical Care patient: No
[2018-08-23] MEDS ORDERED: CEFTRIAXONE 2 GM/100 ML BAG IVPB ONE (15:46)
[2018-08-23] MEDS: CEFTRIAXONE 2 GM in DEXTROSE 5%-WATER 100 ML IVPB SCH (16:18)
--- NOTE | 2018-08-23 16:50 | CONS ---
DATE OF CONSULTATION: DATE OF DICTATION: 08/23/2018 REQUESTING [place]PUBL[place]: Hospitalist Service CONSULTING PHYSICIAN: Vero Cabrera M.D. HISTORY OF PRESENT ILLNESS: This is a 63-year-old man who comes to the emergency room on the with complaints of fever, cough, since the . He worked [employer], he and his report getting wet and subsequently developing cough and fever. She has improved. He started feeling better but then yesterday morning he felt worse and he came to the emergency room. He has tried [id number] medicines. He has not taken any antibiotics. He has had 2 episodes of diarrhea, that have resolved. He has no vomiting. His appetite has been okay. He has not had any chest pain or dysuria. He has not had medical care for the last several years. In the emergency room, he was noted to be tachycardic, to be in atrial flutter, with rapid ventricular response. He was given Cardizem. His influenza A screen came back positive, and he was started on Tamiflu. PAST MEDICAL HISTORY: Unremarkable. PAST SURGICAL HISTORY: He has had bilateral tendon surgery. MEDICATION: He takes no medications at home. SOCIAL HISTORY: He stopped smoking 25 years ago. Occasional alcohol. No drugs. 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 He lives with his . There has been no recent travel. ALLERGIES: No known drug allergies. REVIEW OF SYSTEMS: As per HPI. PHYSICAL EXAMINATION: VITAL SIGNS: His temperature was 102.7 in the ER. He has a cough. He is otherwise awake and alert. His current temperature is 98.4, pulse 125, blood pressure 148/80, respiratory rate 18. Saturating 99% on 3 L. HEENT: Normocephalic. Eyes are anicteric. NECK: Supple. LUNGS: Bilateral rhonchi. HEART: Regular rate and rhythm. ABDOMEN: Soft, nontender. EXTREMITIES: Without edema. WHITE COUNT: 4.1, hemoglobin 14.3, platelets of 182. His BUN and creatinine are 16 and 0.8. The AST is 51, ALT is 67, alkaline phosphatase is 37, troponin on admission was 0.12. Urinalysis has 1 white cell. Toxicology screen is negative, and influenza A is positive. He had a legionella and pneumococcal urinary antigen that are negative. Blood cultures are pending. A chest x-ray that shows no growth focal infiltrate. IMPRESSION: In summary, this is a 63-year-old man admitted with influenza A, abnormal liver function tests, tachycardia, atrial flutter with rapid ventricular response, and new-onset diabetes with elevated hemoglobin A1c with maintained rapid isolation, continue Tamiflu and obtain cardiology evaluation. Further recommendations to follow. VERO CABRERA M.D. EDI/[id number]
[2018-08-23] MEDS: RIVAROXABAN 20 MG TABLET PO SCH (18:12)
[2018-08-24 01:13] LABS: HEP.C VIRUS AB <0.1 s/co ratio (0.0-0.9)
--- NOTE | 2018-08-24 07:29 | EKG ---
Test Reason : Blood Pressure : / mmHG Vent. Rate : 070 BPM Atrial Rate : 070 BPM P-R Int : 174 ms QRS Dur : 084 ms QT Int : 406 ms P-R-T Axes : 041 -09 016 degrees QTc Int : 438 ms NORMAL SINUS RHYTHM POSSIBLE LEFT ATRIAL ENLARGEMENT T WAVE ABNORMALITY, CONSIDER ANTERIOR ISCHEMIA ABNORMAL ECG WHEN COMPARED WITH ECG OF 22-AUG-2018 20:18, SINUS RHYTHM HAS REPLACED ATRIAL FIBRILLATION VENT. RATE HAS DECREASED BY 48 BPM T WAVE VARIATION Confirmed by ZAHIRA LUTHER MD ([id number]) on 08/23/2018 2:46:17 PM Referred By: Confirmed By:ZAHIRA LUTHER MD
[2018-08-24] MEDS ORDERED: dilTIAZem HCL 60 MG TABLET (FP) ONE (07:51)
[2018-08-24] MEDS: dilTIAZem HCL 60 MG TABLET (FP) PO SCH ×3 (07:54→18:00)
[2018-08-24] MEDS: INSULIN SLIDING SCALE (NOVOLOG) 1 VIAL SQ SCH ×3 (09:00→16:40)
[2018-08-24] MEDS ORDERED: PT OWN MED DRAWER 7, Y5N ONE ×5 (09:08→22:01)
[2018-08-24] MEDS ORDERED: cefTRIAXone SODIUM 1 GM VIAL ONE (09:10)
[2018-08-24] MEDS ORDERED: CEFTRIAXONE 2 GM/100 ML BAG IVPB ONE (09:13)
--- NOTE | 2018-08-24 09:32 | PN ---
Progress Note (short form) - Note Progress Note: Consult Specialty:: cardio Reason for Consultation:: elevated troponin - History of Present Illness Chief Complaint: cough, fever History of Present Illness: feels better today. no chest pain, palps, dizziness, lightheadedness Current Medications Acetaminophen (Ofirmev Injection -) 1,000 mg IVPB Q6H PRN PRN Reason: FEVER Diltiazem HCl (Cardizem -) 60 mg PO Q6HPO [facility] Last Admin: 08/24/18 07:54 Dose: 60 mg Sodium Chloride (1/2 Normal Saline) 1,000 mls @ 75 mls/hr IV ASDIR CARISSA Last Admin: 08/23/18 11:53 Dose: 75 mls/hr Ceftriaxone Sodium 2 gm/ (Dextrose) 100 mls @ 200 mls/hr IVPB DAILY [facility]; Protocol Last Admin: 08/23/18 16:18 Dose: 200 mls/hr Insulin Aspart (Novolog Vial Sliding Scale -) 1 vial SQ TIDAC [facility]; Protocol Last Admin: 08/24/18 09:00 Dose: Not Given Metoprolol Tartrate (Lopressor Injection -) 5 mg IVPUSH Q4H PRN PRN Reason: HYPERTENSION Last Admin: 08/23/18 09:04 Dose: 5 mg Oseltamivir Phosphate (Tamiflu -) 75 mg PO BID [facility] Stop: 08/28/18 09:59 Last Admin: 08/23/18 23:07 Dose: 75 mg Rivaroxaban (Xarelto -) 20 mg PO DAILY@1800 CARISSA Last Admin: 08/23/18 18:12 Dose: 20 mg Vital Signs Period Temp Pulse Resp BP Sys/Luque Pulse Ox Last 24 Hr 98.0 F-98.4 F 75-125 18 143-148/74-80 99-100 Constitutional: Yes: Well Nourished, No Distress Eyes: No: Sclera Icterus HENT: No: Nasal Congestion Neck: No: Decreased ROM Respiratory: Yes: Rhonchi (diffuse). No: Accessory Muscle Use, Wheezes Gastrointestinal: Yes: Normal Bowel Sounds. No: Distention, Hepatomegaly, Palpable Mass, Tenderness Cardiovascular: Yes: Regular Rate and Rhythm JVD: No Carotid Bruit: No PMI: Non-Displaced Heart Sounds: Yes: S1, S2. No: Gallop Murmur: No: Systolic Murmur, Diastolic Murmur Musculoskeletal: Yes: Other (No kyphosis) Extremities: No: Cool, Cyanosis Edema: No Peripheral Pulses: 2+ Left Carotid, 2+ Right Carotid, 2+ Left Doralis Pedis, 2+ Right Dorsalis Pedis Integumentary: No: Jaundice Neurological: Yes: Alert, Oriented (x3) Psychiatric: No: Agitated Assessment/Plan ECG #1: SVT 160s bpm (? long R-P), nonsp ST-Ts (no prior) ECG #2: afib > flutter, nonsp TWAs tele: sinus, PVCs CXR: some congestive changes. no effusion. no infiltrate. flu A: -per hospitalist -no signs/sx suspicious for chf afib/flutter, rapid HR: -new dx, in setting of acute sepsis/hi fever from flu -HR responded to cardizem in ER, continue 60 q6h as doing - now in sinus -echo pending -CHADS VASC 2 (dx HTN urgency, DM here). -d/w'd pt who denies etoh, falls/head trauma, hi risk activities, PUD, GIB or other bleeding history. advised relative risk of cva vs bleed from AC. doesn't want warfarin b/c mother was on this and caused complications. reviewed data with him regarding NOAC vs warfarin--agrees to NOAC. -ok to start AC now as his diast BP is <110...start xarelto (for qd dosing--to max compliance) hypertensive urgency: -no prior known dx of HTN -BP very elevated here initially (diastolic)--now improved -cont diltiazem as ordered -trend BP--low threshold add ARB elev trop -trop 0.12->0.07, not c/w ACS -trend serial labs -ECG x 2 non-ischemic. -echo pending DM: -new dx -A1c 7.0 -per hospitalist elev LFTs: -transaminases mildly up--viral syndrome? -per hospitalist
[2018-08-24] MEDS: CEFTRIAXONE 2 GM in DEXTROSE 5%-WATER 100 ML IVPB SCH (09:47)
[2018-08-24] MEDS: SODIUM CHLORIDE 0.45% 1,000 ML IV SCH (10:28)
[2018-08-24] MEDS: OSELTAMIVIR PHOSPHATE 75 MG CAPSULE PO SCH ×2 (10:28→22:03)
[2018-08-24 10:39] LABS: HEMATOCRIT 39.8 % (35.4-49); HEMOGLOBIN 13.8 GM/dL (11.7-16.9); MCH 29.3 pg (25.7-33.7); MCHC 34.8 g/dl (32.0-35.9); MEAN CELL VOLUME 84.2 fl (80-96); MEAN PLT VOLUME 10.1 fl (7.5-11.1); PLATELET COUNT 204 K/MM3 (134-434); RBC 4.73 M/mm3 (4.00-5.60); RDW 13.7 % (11.9-15.9); WHITE BLOOD COUNT 3.8 K/mm3 (4.0-10.0)
[2018-08-24 11:02] LABS: ANION GAP 8 MMOL/L (8-16); BLOOD UREA NITROGEN 14 mg/dL (7-18); CALCIUM 8.5 mg/dL (8.5-10.1); CHLORIDE 102 mmol/L (98-107); CO2 28 mmol/L (21-32); CREATININE 0.7 mg/dL (0.55-1.3); GLUCOSE,RANDOM 154 mg/dL (74-106); MAGNESIUM 2.2 mg/dL (1.8-2.4); PHOSPHOROUS 2.4 mg/dL (2.5-4.9); POTASSIUM 3.6 mmol/L (3.5-5.1); SODIUM 138 mmol/L (136-145)
[2018-08-24] MEDS ORDERED: NAPH,MB-DB/K PH,MBDB POWDER PACKET PO ONE ×2 (12:05→12:45)
--- NOTE | 2018-08-24 12:18 | ECHO ---
Name: FRANSICO DENSON Exam:Adult Echocardiogram Study Date: 08/24/2018 08:51 AM Age: 63 yrs Reason For Study: A-Fib Height: 67 in Weight: 228 lb BSA: 2.1 m2 MMode/2D Measurements & Calculations IVSd: 1.7 cm Ao root diam: 2.9 cm LVIDd: 3.5 cm LA dimension: 4.4 cm LVIDs: 2.5 cm LVPWd: 1.3 cm EDV(Teich): 49.5 ml LAV (MOD-bp): 59.4 ml ESV(Teich): 22.7 ml Doppler Measurements & Calculations MV E max leoncio: 135.0 cm/sec MR max leoncio: 395.0 cm/sec MV A max leoncio: 38.8 cm/sec MR max P.4 mmHg MV E/A: 3.5 MV dec time: 0.15 sec TR max leoncio: 334.9 cm/sec Med Peak E' Leoncio: 8.3 cm/sec TR max P.1 mmHg Med E/e': 16.3 Lat Peak E' Leoncio: 11.7 cm/sec Lat E/e': 11.5 PI Vmax: 69.2 cm/sec Procedure A complete two-dimensional transthoracic echocardiogram was performed (2D, M-mode, Doppler and color flow Doppler). Left Ventricle The left ventricular size, thickness and function are normal. Ejection Fraction = 65%. The transmitra l spectral Doppler flow pattern is suggestive of impaired LV relaxation. The left ventricular wall paula on is normal. Right Ventricle The right ventricle is normal in size and function. Atria The left atrium is mildly dilated. Right atrial size is normal. Mitral Valve There is mild mitral annular calcification. There is trace to mild mitral regurgitation. Tricuspid Valve The tricuspid valve is not well visualized, but is grossly normal. There is mild to moderate tricuspi d regurgitation. Right ventricular systolic pressure is elevated at 50 mmhg. There is moderate pulmonar y hypertension. Aortic Valve The aortic valve is normal in structure and function. Pulmonic Valve The pulmonic valve is not well seen, but is grossly normal. Great Vessels The aortic root is normal size. Normal aortic arch, descending and ascending aorta. Pericardium/Pleura There is no pericardial effusion. There is no pleural effusion. Interpretation Summary Ejection Fraction = 65%. The transmitral spectral Doppler flow pattern is suggestive of impaired LV relaxation. The left atrium is mildly dilated. There is mild mitral annular calcification. There is trace to mild mitral regurgitation. There is mild to moderate tricuspid regurgitation. Right ventricular systolic pressure is elevated at 50 mmhg. There is moderate pulmonary hypertension. MD Erich Spears 08/24/2018 12:18 PM
--- NOTE | 2018-08-24 16:21 | PN ---
Physical Exam: SUBJECTIVE: Patient seen and examined at bedside this morning. No acute events overnight. Patient looking and feeling better today. No fever or chills overnight. Patient reports improvement of cough. Heart rate has been stable all day, still with elevated blood pressure. OBJECTIVE: Vital Signs Period Temp Pulse Resp BP Sys/Luque Pulse Ox Last 24 Hr 98.0 F-98.4 F 74-75 20-20 143-162/74-84 97-100 GENERAL: The patient is awake, alert, and fully oriented, not in distress HEAD: Normal with no signs of trauma. EYES: PERRLA, EOMI, sclerae anicteric, conjunctivae clear. ENT: Ears normal, nares patent, oropharynx clear without exudates, moist mucous membranes. NECK: Trachea midline, full range of motion, supple. LUNGS:+rhonchi bilaterally. No wheezing or crackles appreciated. HEART: Regular rate and rhythm, S1, S2 without murmur, rub or gallop. ABDOMEN: Soft, nontender, nondistended, normoactive bowel sounds. EXTREMITIES: 2+ pulses, warm, well-perfused, no edema NEUROLOGICAL: Cranial nerves II through XII grossly intact. Normal speech, gait not observed. PSYCH: Normal mood, normal affect. SKIN: Warm, dry, normal turgor, no rashes or lesions noted Laboratory Results - last 24 hr 08/23/18 08/23/18 08/23/18 05:40 05:40 16:11 WBC RBC Hgb Hct MCV MCH MCHC RDW Plt Count MPV Sodium Potassium Chloride Carbon Dioxide Anion Gap BUN Creatinine Creat Clearance w eGFR POC Glucometer 117.68631 Random Glucose Calcium Phosphorus Magnesium Creatine Kinase Creatine Kinase Index CK-MB (CK-2) Hepatitis A IgM Ab Negative Hep Bs Antigen Negative Hep B Core IgM Ab Negative Negative Hepatitis C Antibody <0.1 08/24/18 08/24/18 08/24/18 06:00 08:02 10:12 WBC 3.8 L RBC 4.73 Hgb 13.8 Hct 39.8 MCV 84.2 MCH 29.3 MCHC 34.8 RDW 13.7 Plt Count 204 MPV 10.1 Sodium Potassium Chloride Carbon Dioxide Anion Gap BUN Creatinine Creat Clearance w eGFR POC Glucometer [phone] Random Glucose Calcium Phosphorus Magnesium Creatine Kinase 298 Creatine Kinase Index 0.3 CK-MB (CK-2) 1.1 Hepatitis A IgM Ab Hep Bs Antigen Hep B Core IgM Ab Hepatitis C Antibody 08/24/18 08/24/18 10:12 11:58 WBC RBC Hgb Hct MCV MCH MCHC RDW Plt Count MPV Sodium 138 Potassium 3.6 Chloride 102 Carbon Dioxide 28 Anion Gap 8 BUN 14 Creatinine 0.7 Creat Clearance w eGFR > 60 POC Glucometer 134.16123 Random Glucose 154 H Calcium 8.5 Phosphorus 2.4 L Magnesium 2.2 Creatine Kinase Creatine Kinase Index CK-MB (CK-2) Hepatitis A IgM Ab Hep Bs Antigen Hep B Core IgM Ab Hepatitis C Antibody Active Medications Generic Name Dose Route Start Last Admin Trade Name Freq PRN Reason Stop Dose Admin Acetaminophen 1,000 mg 08/22/18 23:19 Ofirmev Injection - IVPB Q6H PRN FEVER Diltiazem HCl 60 mg 08/23/18 10:35 08/24/18 12:08 Cardizem - PO 60 mg Q6HPO CARISSA Administration Sodium Chloride 1,000 mls @ 75 mls/hr 08/23/18 10:45 08/24/18 10:28 1/2 Normal Saline IV 75 mls/hr ASDIR CARISSA Administration Ceftriaxone Sodium 2 gm/ 100 mls @ 200 mls/hr 08/23/18 15:30 08/24/18 09:47 Dextrose IVPB 200 mls/hr DAILY CARISSA Administration Protocol Insulin Aspart 1 vial 08/23/18 11:00 08/24/18 12:00 Novolog Vial Sliding Scale - SQ Not Given TIDAC REPLACED BY [facility] Protocol Metoprolol Tartrate 5 mg 08/22/18 23:20 08/23/18 09:04 Lopressor Injection - IVPUSH 5 mg Q4H PRN Administration HYPERTENSION Oseltamivir Phosphate 75 mg 08/23/18 10:00 08/24/18 10:28 Tamiflu - PO 08/28/18 09:59 75 mg BID CARISSA Administration Rivaroxaban 20 mg 08/23/18 18:00 08/23/18 18:12 Xarelto - PO 20 mg DAILY@1800 CARISSA Administration ASSESSMENT/PLAN: Patient is a 63 year old male with no significant past medical history, presented with fever and nonproductive cough for 6 days. At the ED, patient was noted to have A.fib with RVR #Sepsis 2/2 Flu: improving -Influenza A - positive -ID (Dr. Hammer) consulted. Recommendations appreciated. -Continue Tamiflu 75 mg BID day 2 -Ceftriaxone 2gm daily day 2 -CXR: no infiltrates, congestive changes -Blood and urine cx - no growth -Urine Legionella antigen - negative -IV 1/2 NS @ 75 #New onset Atrial fibrillation -likely triggered by sepsis 2/2 flu -Cardizem increased to 60mg q6h -Will start Cardizem 240mg daily dosing tomorrow and stop 60mg q6h -Echo - EF 65%. The transmitral spectral Doppler flow pattern is suggestive of impaired LV relaxation. LA is mildly dilated. Trace to mild MR. Mild to moderate TR. RV systolic pressure is elevated at 50mmHg. There is moderate pulmonary HTN. -Cardiology (Dr. Wood) consulted. Recommendations appreciated. -CHADS VASc - 2 -Will start Xarelto 20mg daily #Hypertension -No prior hx of HTN -Cardizem 60mg q6h -Iv Lopressor 5mg q4h PRN for tachycardia. -Cardiology consulted. Recommendations appreciated. -Monitor BP -Low threshold - may add ARB #Troponinemia -0.12 --> 0.07 -likely 2/2 demand ischemia -EKG: no ST-T wave abnormalities -Echo #Hyperglycemia -HbA1c 7.0 -BGM TIDAC -Insulin sliding scale implemented -Will need follow-up as outpatient for further management #Transaminitis -AST/ALT 51/67, improving -RUQ US: Slightly coarse echotexture of the liver, correlate with liver enzymes to rule out mild fatty infiltration. Multiple gallstones without sonographic evidence of acute cholecystitis. -Hepatitis panel - negative -Urine toxicology - negative #FEN -IV 1/2 NS @ 75ml/hr -Electrolytes wnl, routine bmp monitoring -Diabetic diet, low fat and low sodium diet #Prophylaxis -Xarelto 20mg daily #Disposition -full code -admit to tele Visit type - Emergency Visit Emergency Visit: Yes ED Registration Date: 08/22/18 Care time: The patient presented to the Emergency Department on the above date and was hospitalized for further evaluation of their emergent condition. - New Patient This patient is new to me today: No - Critical Care Critical Care patient: No
--- NOTE | 2018-08-24 16:24 | PN ---
Progress Note (short form) - Note Progress Note: continued cough afebrile remains on oxygen Vital Signs Period Temp Pulse Resp BP Sys/Luque Pulse Ox Last 24 Hr 98.0 F-98.4 F 74-75 20-20 143-162/74-84 97-100 cor-rrr lungs bilateral rhonchi abd soft,nt ext no edema CBC, BMP 08/24/18 10:12 08/24/18 10:12 Microbiology 08/22/18 23:20 Urine - Urine Clean Catch Urine Culture - Final NO GROWTH OBTAINED 08/22/18 18:00 Blood - Peripheral Venous Blood Culture - Preliminary NO GROWTH OBTAINED AFTER 24 HOURS, INCUBATION TO CONTINUE FOR 4 DAYS. 08/22/18 18:00 Blood - Peripheral Venous Blood Culture - Preliminary NO GROWTH OBTAINED AFTER 24 HOURS, INCUBATION TO CONTINUE FOR 4 DAYS. 08/23/18 00:00 Urine For Antigen Detection Legionella Antigen - Final 08/23/18 00:00 Urine For Antigen Detection Streptococcus pneumoniae Antigen (M - Final cxray- congestion, cannot r/o Right basilar infiltrate Current Medications Acetaminophen (Ofirmev Injection -) 1,000 mg IVPB Q6H PRN PRN Reason: FEVER Diltiazem HCl (Cardizem -) 60 mg PO Q6HPO CARISSA Last Admin: 08/24/18 12:08 Dose: 60 mg Sodium Chloride (1/2 Normal Saline) 1,000 mls @ 75 mls/hr IV ASDIR CARISSA Last Admin: 08/24/18 10:28 Dose: 75 mls/hr Ceftriaxone Sodium 2 gm/ (Dextrose) 100 mls @ 200 mls/hr IVPB DAILY CARISSA; Protocol Last Admin: 08/24/18 09:47 Dose: 200 mls/hr Insulin Aspart (Novolog Vial Sliding Scale -) 1 vial SQ TIDAC CARISSA; Protocol Last Admin: 08/24/18 12:00 Dose: Not Given Metoprolol Tartrate (Lopressor Injection -) 5 mg IVPUSH Q4H PRN PRN Reason: HYPERTENSION Last Admin: 08/23/18 09:04 Dose: 5 mg Oseltamivir Phosphate (Tamiflu -) 75 mg PO BID CARISSA Stop: 08/28/18 09:59 Last Admin: 08/24/18 10:28 Dose: 75 mg Rivaroxaban (Xarelto -) 20 mg PO DAILY@1800 CARISSA Last Admin: 08/23/18 18:12 Dose: 20 mg a/p Influenza A hypoxia- repeat cxray with question of right basilar infiltrate- continue rocephin abnl lfts- most likely due to influenza-repeat lfts in am, sono noted- galllstones, ?fatty liver tachycardia- aflutter with RVR new onset diabetes droplet isolation tamiflu 75 bid day #2 cardiology evaluation noted rocephin day #2 d/w at length Problem List - Problems (1) Influenza A Code(s): J10.1 - FLU DUE TO OTH IDENT INFLUENZA VIRUS W OTH RESP MANIFEST (2) Tachycardia Code(s): R00.0 - TACHYCARDIA, UNSPECIFIED (3) Abnormal LFTs Code(s): R94.5 - ABNORMAL RESULTS OF LIVER FUNCTION STUDIES (4) Pneumonia Code(s): J18.9 - PNEUMONIA, UNSPECIFIED ORGANISM
[2018-08-24] MEDS: RIVAROXABAN 20 MG TABLET PO SCH (17:59)
--- NOTE | 2018-08-24 19:21 | PN ---
Teaching Attending Note Name of Resident: Shawna Thacker ATTENDING PHYSICIAN STATEMENT I saw and evaluated the patient. I reviewed the resident's note and discussed the case with the resident. I agree with the resident's findings and plan as documented. SUBJECTIVE: Patient is feeling better today. no fever or chills, no shortness of breath. OBJECTIVE: Vital Signs Temperature 98.4 F 08/24/18 19:04 Pulse Rate 74 08/24/18 19:04 Respiratory Rate 16 08/24/18 19:04 Blood Pressure 146/87 08/24/18 19:04 O2 Sat by Pulse Oximetry (%) 97 08/24/18 19:04 GENERAL: AAOx3, NAD HEAD: NCAT, EYES: PERRL, EOMI, ENT: Oropharynx clear without exudates. MMM. NECK: No JVD LUNGS: decreased air entery bl , on 2L NC HEART: Tachycardic, normal S1 and S2 without murmur ABDOMEN: Obese, Soft, nontender, not distended, positive for BS, no guarding MUSCULOSKELETAL: No CVA tenderness. EXTREMITIES: 2+ pulses, Trace edema. NEUROLOGICAL: Cranial nerves II-XII intact. Normal speech. SKIN: Warm, dry. CBCD WBC 3.8 K/mm3 (4.0-10.0) L 08/24/18 10:12 RBC 4.73 M/mm3 (4.00-5.60) 08/24/18 10:12 Hgb 13.8 GM/dL (11.7-16.9) 08/24/18 10:12 Hct 39.8 % (35.4-49) 08/24/18 10:12 MCV 84.2 fl (80-96) 08/24/18 10:12 MCHC 34.8 g/dl (32.0-35.9) 08/24/18 10:12 RDW 13.7 % (11.9-15.9) 08/24/18 10:12 Plt Count 204 K/MM3 (134-434) 08/24/18 10:12 MPV 10.1 fl (7.5-11.1) 08/24/18 10:12 CMP Sodium 138 mmol/L (136-145) 08/24/18 10:12 Potassium 3.6 mmol/L (3.5-5.1) 08/24/18 10:12 Chloride 102 mmol/L (98-107) 08/24/18 10:12 Carbon Dioxide 28 mmol/L (21-32) 08/24/18 10:12 Anion Gap 8 MMOL/L (8-16) 08/24/18 10:12 BUN 14 mg/dL (7-18) 08/24/18 10:12 Creatinine 0.7 mg/dL (0.55-1.3) 08/24/18 10:12 Creat Clearance w eGFR > 60 (>60) 08/24/18 10:12 Random Glucose 154 mg/dL (74-106) H 08/24/18 10:12 Calcium 8.5 mg/dL (8.5-10.1) 08/24/18 10:12 Total Bilirubin 0.6 mg/dL (0.2-1) 08/23/18 06:00 AST 51 U/L (15-37) H 08/23/18 06:00 ALT 67 U/L (13-61) H 08/23/18 06:00 Alkaline Phosphatase 37 U/L (45-117) L 08/23/18 06:00 Total Protein 5.6 g/dl (6.4-8.2) L 08/23/18 06:00 Albumin 2.6 g/dl (3.4-5.0) L 08/23/18 06:00 CARDIAC ENZYMES Creatine Kinase 298 IU/L (26-308) 08/24/18 06:00 Troponin I 0.07 ng/ml (0.00-0.05) H 08/23/18 13:40 Current Medications Generic Name Dose Route Start Last Admin Trade Name Johnnieq PRN Reason Stop Dose Admin Acetaminophen 1,000 mg 08/22/18 23:19 Ofirmev Injection - IVPB Q6H PRN FEVER Diltiazem HCl 240 mg 08/25/18 10:00 Cardizem Cd - PO DAILY CARISSA Sodium Chloride 1,000 mls @ 75 mls/hr 08/23/18 10:45 08/24/18 10:28 1/2 Normal Saline IV 75 mls/hr ASDIR CARISSA Administration Ceftriaxone Sodium 2 gm/ 100 mls @ 200 mls/hr 08/23/18 15:30 08/24/18 09:47 Dextrose IVPB 200 mls/hr DAILY CARISSA Administration Protocol Insulin Aspart 1 vial 08/23/18 11:00 08/24/18 16:40 Novolog Vial Sliding Scale - SQ Not Given TIDAC [facility] Protocol Metoprolol Tartrate 5 mg 08/22/18 23:20 08/23/18 09:04 Lopressor Injection - IVPUSH 5 mg Q4H PRN Administration HYPERTENSION Oseltamivir Phosphate 75 mg 08/23/18 10:00 08/24/18 10:28 Tamiflu - PO 08/28/18 09:59 75 mg BID CARISSA Administration Rivaroxaban 20 mg 08/23/18 18:00 08/24/18 17:59 Xarelto - PO 20 mg DAILY@1800 CARISSA Administration Home Medications Medication Instructions Recorded Aspirin [Aspirin EC] 325 mg PO DAILY 08/22/18 EKG: Afib with RVR, rat of 118, Qtc 504 ASSESSMENT AND PLAN: Patient is a 63 year old man with no significant PMHx who presented for having cough, fever over the past 6 days and was found to have Afib with RVR. # Viral syndrome - Positive for Influenza A and started on Tamiflu continue, patient is doing better continue . CXR shows cardiomegaly and increased interstitial markings. Also on Rocephin IV as per ID. Incentive spirometer continue. # Afib with RVR: on xarelto continue , Cardiazem po and Lopressor IV , cardio consult , echo. report reviewed pulmonary htn 50mmhg # Elevated troponins demand ischemia: continue to monitor # HTN Uncontrolled: on cardizem and lopressor IV # New onset DM with hemoglobin A1c of 7.0 , with blood sugar of 110's, ss with coverage # Obesity - with BMi of 36 , Consult forestry worker. DVT prophylaxis - xarelto Full code
[2018-08-25] MEDS ORDERED: ATROPINE SO4 0.4 MG/1 ML VIAL IVPUSH ONE (05:51)
[2018-08-25] MEDS ORDERED: ATROPINE SO4 0.4 MG/1 ML VIAL IVPUSH PRN (05:52)
[2018-08-25] MEDS: INSULIN SLIDING SCALE (NOVOLOG) 1 VIAL SQ SCH ×3 (06:02→16:43)
[2018-08-25 06:15] LABS: BASO % 0.3 % (0-2.0); EOS % 3.4 % (0-4.5); HEMATOCRIT 43.6 % (35.4-49); HEMOGLOBIN 14.1 GM/dL (11.7-16.9); LYMPH % 29.6 % (8-40); MCH 27.5 pg (25.7-33.7); MCHC 32.3 g/dl (32.0-35.9); MEAN CELL VOLUME 85.2 fl (80-96); MEAN PLT VOLUME 9.7 fl (7.5-11.1); MONO % 15.1 % (3.8-10.2); NEUT % 51.6 % (42.8-82.8); PLATELET COUNT 224 K/MM3 (134-434); RBC 5.12 M/mm3 (4.00-5.60); RDW 13.7 % (11.9-15.9); WHITE BLOOD COUNT 5.9 K/mm3 (4.0-10.0)
--- NOTE | 2018-08-25 06:34 | HOSP ---
Physical Examination Vital Signs: Vital Signs Temperature 98.2 F 08/25/18 01:00 Pulse Rate 70 08/25/18 01:00 Respiratory Rate 18 08/25/18 01:00 Blood Pressure 152/83 08/25/18 01:00 O2 Sat by Pulse Oximetry (%) 96 08/24/18 21:00 Labs: CBC, BMP 08/24/18 10:12 08/24/18 10:12 <Mulugeta Slater - Last Filed: 08/25/18 07:09> Vital Signs: Vital Signs Temperature 97.9 F 08/27/18 14:00 Pulse Rate 103 H 08/27/18 17:05 Respiratory Rate 8 L 08/27/18 14:00 Blood Pressure 144/75 08/27/18 14:00 O2 Sat by Pulse Oximetry (%) 97 08/27/18 17:05 Labs: CBC, BMP 08/27/18 06:00 08/27/18 06:00 <Calvin Florentino - Last Filed: 09/06/18 19:51> Hospitalist Encounter Assessment: paged by nurse. pt having multiple episodes of intermittent regino (25-30s) to tachy (140s) arrhythmias on tele. pt has been asymptomatic however w/ no complaints of cp, sob, TAM, etc... Pt did receive his cardizem today at 6pm but had multiple episodes of bradycardia and breakthrough RVR while off of medication per monitors BP 164/97, HR 130s , 95% 2L NC PE lying in bed comfortable irregularly irregular S1 S2 no m/r/g crackles b/l at bases R>L (pt on IVF) Rhythm strips reviewed. P waves appear to be of similar morphology and are followed by QRS Does not appear to be Third degree block. Possibly a 2nd degree type 2 AV block vs Sick Sinus vs. other tachy-regino syndrome. EKG STAT - A-fib w/ RVR 119, QTC 483, no ST- T wave or ischemic changes noted. pacer pads atropine at bedside hold off on IVF Hold further doses of CCB while pt BP holding and asymptomatic until Cardio recs. ICU aware of pt; will call back pending cardio recs <Mulugeta Slater - Last Filed: 08/25/18 07:09> Outcome: Seen and examined;agree with all the above aside form as edited by me in my own note. Thank you. Was present for all vital parts of encounter; plan discussed with me. Agree with above as documented by the resident. <Calvin Florentino - Last Filed: 09/06/18 19:51> Visit type - Emergency Visit Emergency Visit: Yes ED Registration Date: 08/22/18 Care time: The patient presented to the Emergency Department on the above date and was hospitalized for further evaluation of their emergent condition. - New Patient This patient is new to me today: Yes Date on this admission: 08/25/18 - Critical Care Critical Care patient: No <Mulugeta Slater - Last Filed: 08/25/18 07:09>
[2018-08-25 06:36] LABS: ANION GAP 6 MMOL/L (8-16); BLOOD UREA NITROGEN 10 mg/dL (7-18); CALCIUM 8.3 mg/dL (8.5-10.1); CHLORIDE 102 mmol/L (98-107); CO2 32 mmol/L (21-32); CREATININE 0.8 mg/dL (0.55-1.3); GLUCOSE,RANDOM 123 mg/dL (74-106); MAGNESIUM 1.9 mg/dL (1.8-2.4); SODIUM 140 mmol/L (136-145)
[2018-08-25] MEDS ORDERED: DEXTROSE 5%-WATER 100 ML IVPB ONE (09:47)
[2018-08-25] MEDS ORDERED: PT OWN MED DRAWER 7, Y5N ONE ×4 (09:47→21:20)
[2018-08-25] MEDS ORDERED: dilTIAZem HCL 30 MG TABLET (FP) PO ONE (09:48)
[2018-08-25] MEDS: OSELTAMIVIR PHOSPHATE 75 MG CAPSULE PO SCH ×2 (09:54→21:21)
[2018-08-25] MEDS: CEFTRIAXONE 2 GM in DEXTROSE 5%-WATER 100 ML IVPB SCH (09:54)
--- NOTE | 2018-08-25 10:58 | EKG ---
Test Reason : Blood Pressure : / mmHG Vent. Rate : 141 BPM Atrial Rate : 114 BPM P-R Int : 000 ms QRS Dur : 088 ms QT Int : 306 ms P-R-T Axes : 000 -06 010 degrees QTc Int : 468 ms ATRIAL FIBRILLATION WITH RAPID VENTRICULAR RESPONSE NONSPECIFIC ST AND T WAVE ABNORMALITY ABNORMAL ECG WHEN COMPARED WITH ECG OF 25-AUG-2018 05:36, NO SIGNIFICANT CHANGE WAS FOUND Confirmed by MERI MCDONALD MD ([id number]) on 08/25/2018 10:58:04 AM Referred By: JIMMIE DIAS Confirmed By:MERI MCDONALD MD
--- NOTE | 2018-08-25 11:38 | PN ---
Progress Note (short form) - Note Progress Note: Consult Specialty:: cardio Reason for Consultation:: elevated troponin - History of Present Illness Chief Complaint: cough, fever History of Present Illness: no chest pain, palps dizziness, lightheadedness Current Medications Acetaminophen (Ofirmev Injection -) 1,000 mg IVPB Q6H PRN PRN Reason: FEVER Atropine Sulfate (Atropine Injection -) 0.4 mg IVPUSH ONCE PRN PRN Reason: MAP<65mm Hg OR SBP <90 Diltiazem HCl (Cardizem Cd -) 240 mg PO DAILY [facility] Ceftriaxone Sodium 2 gm/ (Dextrose) 100 mls @ 200 mls/hr IVPB DAILY [facility]; Protocol Last Admin: 08/25/18 09:54 Dose: 200 mls/hr Insulin Aspart (Novolog Vial Sliding Scale -) 1 vial SQ TIDAC [facility]; Protocol Last Admin: 08/25/18 11:13 Dose: Not Given Metoprolol Tartrate (Lopressor Injection -) 5 mg IVPUSH Q4H PRN PRN Reason: HYPERTENSION Last Admin: 08/23/18 09:04 Dose: 5 mg Oseltamivir Phosphate (Tamiflu -) 75 mg PO BID [facility] Stop: 08/28/18 09:59 Last Admin: 08/25/18 09:54 Dose: 75 mg Rivaroxaban (Xarelto -) 20 mg PO DAILY@1800 CARISSA Last Admin: 08/24/18 17:59 Dose: 20 mg Vital Signs Period Temp Pulse Resp BP Sys/Luque Pulse Ox Last 24 Hr 97.9 F-98.4 F 70-153 16-20 146-164/73-99 94-97 Constitutional: Yes: Well Nourished, No Distress Eyes: No: Sclera Icterus HENT: No: Nasal Congestion Neck: No: Decreased ROM Respiratory: Yes: Rhonchi (diffuse). No: Accessory Muscle Use, Wheezes Gastrointestinal: Yes: Normal Bowel Sounds. No: Distention, Hepatomegaly, Palpable Mass, Tenderness Cardiovascular: Yes: Regular Rate and Rhythm JVD: No Carotid Bruit: No PMI: Non-Displaced Heart Sounds: Yes: S1, S2. No: Gallop Murmur: No: Systolic Murmur, Diastolic Murmur Musculoskeletal: Yes: Other (No kyphosis) Extremities: No: Cool, Cyanosis Edema: No Peripheral Pulses: 2+ Left Carotid, 2+ Right Carotid, 2+ Left Doralis Pedis, 2+ Right Dorsalis Pedis Integumentary: No: Jaundice Neurological: Yes: Alert, Oriented (x3) Psychiatric: No: Agitated Assessment/Plan ECG #1: SVT 160s bpm (? long R-P), nonsp ST-Ts (no prior) ECG #2: afib > flutter, nonsp TWAs tele: afib rate 130s-140s, occasional episodes 30 seconds of HR 30s CXR: some congestive changes. no effusion. no infiltrate. echo nl LV function, impaired relaxation, tr to mild MR, mild to mod TR, RVSP elevated 50 mmHg, mod pulm HTN flu A: -per hospitalist -no signs/sx suspicious for chf afib/flutter, rapid HR: -new dx, in setting of acute sepsis/hi fever from flu -HR responded to cardizem in ER, continue 60 q6h as doing - was in sinus, now in afib wtih RVR and occasional brief episodes with HR 30s-40s, has not received cardizem today - would restart cardizem given rapid rate, monitor on tele for episodes of slow ventricular rate with afib -echo nl LV function -CHADS VASC 2 (dx HTN urgency, DM here). -d/w'd pt who denies etoh, falls/head trauma, hi risk activities, PUD, GIB or other bleeding history. advised relative risk of cva vs bleed from AC. doesn't want warfarin b/c mother was on this and caused complications. reviewed data with him regarding NOAC vs warfarin--agrees to NOAC. - continue xarelto hypertensive urgency: -no prior known dx of HTN -BP very elevated here initially (diastolic)--now improved -cont diltiazem as ordered -trend BP--low threshold add ARB elev trop -trop indeterminate range, flat trend, not c/w ACS -ECG x 2 non-ischemic. DM: -new dx -A1c 7.0 -per hospitalist elev LFTs: -transaminases mildly up--viral syndrome? -per hospitalist pulm HTN - noted on echo, moderate - consider sleep study
[2018-08-25] MEDS: dilTIAZem HCL 60 MG TABLET (FP) PO SCH ×3 (11:59→23:28)
[2018-08-25 12:30] VITALS: BMI 35.4
[2018-08-25] MEDS ORDERED: dilTIAZem HCL 50 MG/10 ML - 10 ML VIAL IVPUSH PRN (12:35)
--- NOTE | 2018-08-25 13:22 | PN ---
Progress Note (short form) - Note Progress Note: continued cough afebrile remains on oxygen episodes bradycardia overnight- he is asymptomatic Vital Signs Period Temp Pulse Resp BP Sys/Luque Pulse Ox Last 24 Hr 97.9 F-98.4 F 70-153 16-20 146-164/73-99 94-97 cor-rrr lungs bilateral rhonchi abd soft,nt ext no edema CBC, BMP 08/25/18 06:00 08/25/18 06:00 Microbiology 08/22/18 18:00 Blood - Peripheral Venous Blood Culture - Preliminary NO GROWTH OBTAINED AFTER 48 HOURS, INCUBATION TO CONTINUE FOR 3 DAYS. 08/22/18 18:00 Blood - Peripheral Venous Blood Culture - Preliminary NO GROWTH OBTAINED AFTER 48 HOURS, INCUBATION TO CONTINUE FOR 3 DAYS. 08/22/18 23:20 Urine - Urine Clean Catch Urine Culture - Final NO GROWTH OBTAINED 08/23/18 00:00 Urine For Antigen Detection Legionella Antigen - Final 08/23/18 00:00 Urine For Antigen Detection Streptococcus pneumoniae Antigen (M - Final cxray- congestion, cannot r/o Right basilar infiltrate Current Medications Acetaminophen (Ofirmev Injection -) 1,000 mg IVPB Q6H PRN PRN Reason: FEVER Atropine Sulfate (Atropine Injection -) 0.4 mg IVPUSH ONCE PRN PRN Reason: MAP<65mm Hg OR SBP <90 Diltiazem HCl (Cardizem -) 60 mg PO Q6HPO CARISSA Last Admin: 08/25/18 11:59 Dose: 60 mg Diltiazem HCl (Cardizem Injection -) 5 mg IVPUSH Q4H PRN PRN Reason: TACHYCARDIA Ceftriaxone Sodium 2 gm/ (Dextrose) 100 mls @ 200 mls/hr IVPB DAILY [facility]; Protocol Last Admin: 08/25/18 09:54 Dose: 200 mls/hr Insulin Aspart (Novolog Vial Sliding Scale -) 1 vial SQ TIDAC [facility]; Protocol Last Admin: 08/25/18 11:13 Dose: Not Given Metoprolol Tartrate (Lopressor Injection -) 5 mg IVPUSH Q4H PRN PRN Reason: HYPERTENSION Last Admin: 08/23/18 09:04 Dose: 5 mg Oseltamivir Phosphate (Tamiflu -) 75 mg PO BID CARISSA Stop: 08/28/18 09:59 Last Admin: 08/25/18 09:54 Dose: 75 mg Rivaroxaban (Xarelto -) 20 mg PO DAILY@1800 CARISSA Last Admin: 08/24/18 17:59 Dose: 20 mg a/p Influenza A hypoxia- repeat cxray with question of right basilar infiltrate- continue rocephin abnl lfts- most likely due to influenza-repeat lfts in am, sono noted- galllstones, ?fatty liver tachycardia- afib with RVR new onset diabetes droplet isolation tamiflu 75 bid day #3 cardiology evaluation noted rocephin day #3 Problem List - Problems (1) Influenza A Code(s): J10.1 - FLU DUE TO OTH IDENT INFLUENZA VIRUS W OTH RESP MANIFEST (2) Tachycardia Code(s): R00.0 - TACHYCARDIA, UNSPECIFIED (3) Abnormal LFTs Code(s): R94.5 - ABNORMAL RESULTS OF LIVER FUNCTION STUDIES (4) Pneumonia Code(s): J18.9 - PNEUMONIA, UNSPECIFIED ORGANISM
[2018-08-25 13:25] LABS: ALBUMIN 2.8 g/dl (3.4-5.0); BILIRUBIN,DIRECT 0.1 mg/dL (0.0-0.2); BILIRUBIN,TOTAL 0.4 mg/dL (0.2-1); TOT PROT 6.4 g/dl (6.4-8.2)
[2018-08-25] MEDS ORDERED: ACETAMINOPHEN 325 MG TABLET (FP) PO PRN (15:57)
[2018-08-25] MEDS: RIVAROXABAN 20 MG TABLET PO SCH (17:09)
--- NOTE | 2018-08-25 17:46 | PN ---
Physical Exam: SUBJECTIVE: Patient seen and examined at bedside this morning. Overnight, patient was noted to have episodes of bradycardia with HR at 25-30s, and tachycardia at 140s. EKG and trops were ordered. During the day, patient continued to have tachycardia but remains asymptomatic. He denies headache, dizziness, fever, chillls, nausea, vomiting, chest pain, SOB, palpitations, abdominal pain, diarrhea, urinary symptoms. OBJECTIVE: Vital Signs Period Temp Pulse Resp BP Sys/Luque Pulse Ox Last 24 Hr 98.0 F-98.5 F 70-153 16-20 146-164/81-99 94-97 GENERAL: The patient is awake, alert, and fully oriented, not in distress HEAD: Normal with no signs of trauma. EYES: PERRLA, EOMI, sclerae anicteric, conjunctivae clear. ENT: Ears normal, nares patent, oropharynx clear without exudates, moist mucous membranes. NECK: Trachea midline, full range of motion, supple. LUNGS:+rhonchi bilaterally. No wheezing or crackles appreciated. HEART: Regular rate and rhythm, S1, S2 without murmur, rub or gallop. ABDOMEN: Soft, nontender, nondistended, normoactive bowel sounds. EXTREMITIES: 2+ pulses, warm, well-perfused, no edema NEUROLOGICAL: Cranial nerves II through XII grossly intact. Normal speech, gait not observed. PSYCH: Normal mood, normal affect. SKIN: Warm, dry, normal turgor, no rashes or lesions noted Laboratory Results - last 24 hr 08/25/18 08/25/18 08/25/18 05:59 06:00 06:00 WBC 5.9 RBC 5.12 Hgb 14.1 Hct 43.6 MCV 85.2 MCH 27.5 MCHC 32.3 RDW 13.7 Plt Count 224 MPV 9.7 Absolute Neuts (auto) 3.0 Neutrophils % 51.6 Lymphocytes % 29.6 Monocytes % 15.1 H Eosinophils % 3.4 D Basophils % 0.3 Nucleated RBC % 0 Sodium 140 Potassium 4.0 Chloride 102 Carbon Dioxide 32 Anion Gap 6 L BUN 10 Creatinine 0.8 Creat Clearance w eGFR > 60 POC Glucometer 119 Random Glucose 123 H Calcium 8.3 L Phosphorus 3.0 Magnesium 1.9 Total Bilirubin Direct Bilirubin AST ALT Alkaline Phosphatase Troponin I Total Protein Albumin 08/25/18 08/25/1819 11:08 12:30 16:10 WBC RBC Hgb Hct MCV MCH MCHC RDW Plt Count MPV Absolute Neuts (auto) Neutrophils % Lymphocytes % Monocytes % Eosinophils % Basophils % Nucleated RBC % Sodium Potassium Chloride Carbon Dioxide Anion Gap BUN Creatinine Creat Clearance w eGFR POC Glucometer 177 110 Random Glucose Calcium Phosphorus Magnesium Total Bilirubin 0.4 Direct Bilirubin 0.1 AST 44 H ALT 69 H Alkaline Phosphatase 48 Troponin I 0.03 Total Protein 6.4 Albumin 2.8 L Active Medications Generic Name Dose Route Start Last Admin Trade Name Freq PRN Reason Stop Dose Admin Acetaminophen 650 mg 08/25/18 15:57 Tylenol - PO Q6H PRN Fever Or Pain Atropine Sulfate 0.4 mg 08/25/18 05:52 Atropine Injection - IVPUSH ONCE PRN MAP<65mm Hg OR SBP <90 Diltiazem HCl 60 mg 08/25/18 12:00 08/25/18 17:06 Cardizem - PO 60 mg Q6HPO CARISSA Administration Diltiazem HCl 5 mg 08/25/18 12:35 Cardizem Injection - IVPUSH Q4H PRN TACHYCARDIA Ceftriaxone Sodium 2 gm/ 100 mls @ 200 mls/hr 08/23/18 15:30 08/25/18 09:54 Dextrose IVPB 200 mls/hr DAILY [facility] Administration Protocol Insulin Aspart 1 vial 08/23/18 11:00 08/25/18 16:43 Novolog Vial Sliding Scale - SQ Not Given TIDAC [facility] Protocol Metoprolol Tartrate 5 mg 08/22/18 23:20 08/23/18 09:04 Lopressor Injection - IVPUSH 5 mg Q4H PRN Administration HYPERTENSION Oseltamivir Phosphate 75 mg 08/23/18 10:00 08/25/18 09:54 Tamiflu - PO 08/28/18 09:59 75 mg BID CARISSA Administration Rivaroxaban 20 mg 08/23/18 18:00 08/25/18 17:09 Xarelto - PO 20 mg DAILY@1800 CARISSA Administration ASSESSMENT/PLAN: Patient is a 63 year old male with no significant past medical history, presented with fever and nonproductive cough for 6 days. At the ED, patient was noted to have A.fib with RVR #Sepsis 2/2 Flu: improving -Influenza A - positive -ID (Dr. Hammer) consulted. Recommendations appreciated. -Continue Tamiflu 75 mg BID day 3 -Ceftriaxone 2gm daily day 3 -CXR: no infiltrates, congestive changes -Blood and urine cx - no growth -Urine Legionella antigen - negative -IV 1/2 NS discontinued. #New onset Atrial fibrillation -likely triggered by sepsis 2/2 flu -Cardiology (Dr. Cleary) consulted. Recommendations appreciated. -Continue Cardizem 60mg q6h as patient continues to have tachycardia. -IV Cardizem 5mg PRN for tachycardia -Echo - EF 65%. The transmitral spectral Doppler flow pattern is suggestive of impaired LV relaxation. LA is mildly dilated. Trace to mild MR. Mild to moderate TR. RV systolic pressure is elevated at 50mmHg. There is moderate pulmonary HTN. -CHADS VASc - 2 -Will start Xarelto 20mg daily #Hypertension -No prior hx of HTN -Cardizem 60mg q6h -Iv Lopressor 5mg q4h PRN -Cardiology consulted. Recommendations appreciated. -Monitor BP -Low threshold - may add ARB #Troponinemia -0.12 --> 0.03 -likely 2/2 demand ischemia -EKG: Atrial fibrillation, no ST-T wave abnormalities -Echo #Hyperglycemia -HbA1c 7.0 -BGM TIDAC -Insulin sliding scale implemented -Will need follow-up as outpatient for further management #Transaminitis: improving -RUQ US: Slightly coarse echotexture of the liver, correlate with liver enzymes to rule out mild fatty infiltration. Multiple gallstones without sonographic evidence of acute cholecystitis. -Hepatitis panel - negative -Urine toxicology - negative #FEN -Not on any standing fluids. -Electrolytes wnl, routine bmp monitoring -Diabetic diet, low fat and low sodium diet #Prophylaxis -Xarelto 20mg daily #Disposition -full code -admit to tele Visit type - Emergency Visit Emergency Visit: Yes ED Registration Date: 08/22/18 Care time: The patient presented to the Emergency Department on the above date and was hospitalized for further evaluation of their emergent condition. - New Patient This patient is new to me today: No - Critical Care Critical Care patient: No
--- NOTE | 2018-08-25 18:12 | PN ---
Teaching Attending Note Name of Resident: Tricia Lee ATTENDING PHYSICIAN STATEMENT I saw and evaluated the patient. I reviewed the resident's note and discussed the case with the resident. I agree with the resident's findings and plan as documented. SUBJECTIVE: No fever or chills. No SOB , no CP . no palpitations OBJECTIVE: NAD, AAox 3 CV: irreg irreg . no mRG Lungs: bilateral course crackles Ext : trace edema ASSESSMENT AND PLAN: 63 y/o man with no significant PMH who presented with fever and was found to have Infulenza A and A fib with RVR 1- Sepsis from Influenza A and RLL PNA : improved - cont tamiflu and ceftriaxone day 3 - blood cx and urine legionela /strep neg - cxrays reviewed 2- A fib with RVR : with episodes of bradycardia and pauses . - strips reviewed. EKGS from this am reviewed. improvement in anterior TWI. - trop cont to trend down - cont short acting cardizem - might need EP study - cont xarelto, confirmed with insurance coverage - check TSH - d/w dr. Dalton 3- new onset DM ; cont SSI - will start po agents as out pt 4- Transaminitis : likely due to viral illness on background of fatty liver. - LFTS improved . US reviewed. cont to monitor 5- HTN urgency : BP is still elevated. cardizem resumed today if BP is not better by tomorrow , then can give very low dose of norvasc dispo : HLOC
[2018-08-26] MEDS: dilTIAZem HCL 60 MG TABLET (FP) PO SCH (06:10)
[2018-08-26 06:17] LABS: BASO % 0.5 % (0-2.0); EOS % 5.3 % (0-4.5); HEMATOCRIT 42.7 % (35.4-49); MCH 27.6 pg (25.7-33.7); MCHC 32.7 g/dl (32.0-35.9); MEAN CELL VOLUME 84.3 fl (80-96); MEAN PLT VOLUME 9.8 fl (7.5-11.1); MONO % 17.7 % (3.8-10.2); NEUT % 44.5 % (42.8-82.8); PLATELET COUNT 281 K/MM3 (134-434); RBC 5.06 M/mm3 (4.00-5.60); RDW 13.5 % (11.9-15.9); WHITE BLOOD COUNT 6.6 K/mm3 (4.0-10.0)
[2018-08-26] MEDS: INSULIN SLIDING SCALE (NOVOLOG) 1 VIAL SQ SCH ×3 (06:21→16:29)
[2018-08-26 06:54] LABS: ALBUMIN 2.5 g/dl (3.4-5.0); ALK PHOS 39 U/L (45-117); ANION GAP 3 MMOL/L (8-16); BILIRUBIN,TOTAL 0.5 mg/dL (0.2-1); BLOOD UREA NITROGEN 9 mg/dL (7-18); CALCIUM 8.5 mg/dL (8.5-10.1); CHLORIDE 102 mmol/L (98-107); CO2 34 mmol/L (21-32); CREATININE 0.7 mg/dL (0.55-1.3); GLUCOSE,RANDOM 122 mg/dL (74-106); MAGNESIUM 2.2 mg/dL (1.8-2.4); PHOSPHOROUS 3.7 mg/dL (2.5-4.9); POTASSIUM 4.1 mmol/L (3.5-5.1); SGOT/AST 35 U/L (15-37); SGPT/ALT 61 U/L (13-61); SODIUM 140 mmol/L (136-145); TOT PROT 5.8 g/dl (6.4-8.2)
--- NOTE | 2018-08-26 07:08 | EKG ---
Test Reason : Blood Pressure : / mmHG Vent. Rate : 119 BPM Atrial Rate : 277 BPM P-R Int : 000 ms QRS Dur : 096 ms QT Int : 344 ms P-R-T Axes : 000 002 023 degrees QTc Int : 483 ms ATRIAL FIBRILLATION WITH RAPID VENTRICULAR RESPONSE NONSPECIFIC ST ABNORMALITY ABNORMAL ECG WHEN COMPARED WITH ECG OF 24-AUG-2018 09:24, ATRIAL FIBRILLATION HAS REPLACED SINUS RHYTHM VENT. RATE HAS INCREASED BY 44 BPM T WAVE INVERSION NO LONGER EVIDENT IN ANTERIOR LEADS Confirmed by MERI MCDONALD MD ([id number]) on 08/25/2018 11:22:49 AM Referred By: Confirmed By:MERI MCDONALD MD
[2018-08-26] MEDS ORDERED: PT OWN MED DRAWER 7, Y5N ONE ×3 (09:30→21:12)
[2018-08-26] MEDS ORDERED: DEXTROSE 5%-WATER 100 ML IVPB ONE (09:30)
[2018-08-26] MEDS: CEFTRIAXONE 2 GM in DEXTROSE 5%-WATER 100 ML IVPB SCH (09:38)
[2018-08-26] MEDS: OSELTAMIVIR PHOSPHATE 75 MG CAPSULE PO SCH ×2 (09:38→21:14)
--- NOTE | 2018-08-26 11:21 | PN ---
Progress Note (short form) - Note Progress Note: Chief Complaint: cough, fever History of Present Illness: no chest pain, palps dizziness, lightheadedness Current Medications Generic Name Dose Route Start Last Admin Trade Name Johnnieq PRN Reason Stop Dose Admin Acetaminophen 650 mg 08/25/18 15:57 Tylenol - PO Q6H PRN Fever Or Pain Atropine Sulfate 0.4 mg 08/25/18 05:52 Atropine Injection - IVPUSH ONCE PRN MAP<65mm Hg OR SBP <90 Diltiazem HCl 5 mg 08/25/18 12:35 Cardizem Injection - IVPUSH Q4H PRN TACHYCARDIA Diltiazem HCl 240 mg 08/26/18 11:30 Cardizem Cd - PO DAILY [facility] Ceftriaxone Sodium 2 gm/ 100 mls @ 200 mls/hr 08/23/18 15:30 08/26/18 09:38 Dextrose IVPB 200 mls/hr DAILY [facility] Administration Protocol Insulin Aspart 1 vial 08/23/18 11:00 08/26/18 06:21 Novolog Vial Sliding Scale - SQ Not Given TIDAC [facility] Protocol Metoprolol Tartrate 5 mg 08/22/18 23:20 08/23/18 09:04 Lopressor Injection - IVPUSH 5 mg Q4H PRN Administration HYPERTENSION Oseltamivir Phosphate 75 mg 08/23/18 10:00 08/26/18 09:38 Tamiflu - PO 08/28/18 09:59 75 mg BID CARISSA Administration Rivaroxaban 20 mg 08/23/18 18:00 08/25/18 17:09 Xarelto - PO 20 mg DAILY@1800 [facility] Administration Vital Signs Period Temp Pulse Resp BP Sys/Luque Pulse Ox Last 24 Hr 97.8 F-98.5 F 83-101 18-20 145-167/66-99 98-98 Constitutional: Yes: Well Nourished, No Distress Eyes: No: Sclera Icterus Respiratory: Yes: Rhonchi (diffuse). No: Accessory Muscle Use, Wheezes Gastrointestinal: Yes: Normal Bowel Sounds. No: Distention, Hepatomegaly, Palpable Mass, Tenderness Cardiovascular: Yes: irreg JVD: No Heart Sounds: Yes: S1, S2. No: Gallop Murmur: No: Systolic Murmur, Diastolic Murmur Extremities: No: Cool, Cyanosis Edema: No Peripheral Pulses: 2+ Left Carotid, 2+ Right Carotid, 2+ Left Doralis Pedis, 2+ Right Dorsalis Pedis Integumentary: No: Jaundice Neurological: Yes: Alert, Oriented (x3) Psychiatric: No: Agitated Laboratory Last Values WBC 6.6 K/mm3 (4.0-10.0) 08/26/18 05:55 RBC 5.06 M/mm3 (4.00-5.60) 08/26/18 05:55 Hgb 14.0 GM/dL (11.7-16.9) 08/26/18 05:55 Hct 42.7 % (35.4-49) 08/26/18 05:55 MCV 84.3 fl (80-96) 08/26/18 05:55 MCH 27.6 pg (25.7-33.7) 08/26/18 05:55 MCHC 32.7 g/dl (32.0-35.9) 08/26/18 05:55 RDW 13.5 % (11.9-15.9) 08/26/18 05:55 Plt Count 281 K/MM3 (134-434) D 08/26/18 05:55 MPV 9.8 fl (7.5-11.1) 08/26/18 05:55 Absolute Neuts (auto) 2.9 K/mm3 (1.5-8.0) 08/26/18 05:55 Neutrophils % 44.5 % (42.8-82.8) 08/26/18 05:55 Lymphocytes % 32.0 % (8-40) 08/26/18 05:55 Monocytes % 17.7 % (3.8-10.2) H 08/26/18 05:55 Eosinophils % 5.3 % (0-4.5) H 08/26/18 05:55 Basophils % 0.5 % (0-2.0) 08/26/18 05:55 Nucleated RBC % 0 % (0-0) 08/26/18 05:55 PT with INR 13.10 SEC (9.7-13.0) H 08/22/18 18:00 INR 1.11 (0.83-1.09) H 08/22/18 18:00 PTT (Actin FS) 33.4 SECONDS (25.2-36.5) 08/22/18 18:00 VBG pH 7.43 (7.32-7.42) H 08/22/18 18:00 POC VBG pCO2 42.4 mmHg (38-52) 08/22/18 18:00 POC VBG pO2 38.5 mmHg (28-48) 08/22/18 18:00 Mixed VBG HCO3 28.0 meq/L (19-25) H 08/22/18 18:00 Sodium 140 mmol/L (136-145) 08/26/18 05:55 Potassium 4.1 mmol/L (3.5-5.1) 08/26/18 05:55 Chloride 102 mmol/L (98-107) 08/26/18 05:55 Carbon Dioxide 34 mmol/L (21-32) H 08/26/18 05:55 Anion Gap 3 MMOL/L (8-16) L 08/26/18 05:55 BUN 9 mg/dL (7-18) 08/26/18 05:55 Creatinine 0.7 mg/dL (0.55-1.3) 08/26/18 05:55 Creat Clearance w eGFR > 60 (>60) 08/26/18 05:55 POC Glucometer 132 UNITS (80-120) 08/26/18 06:14 Random Glucose 122 mg/dL (74-106) H 08/26/18 05:55 Hemoglobin A1c % 7.0 % (4.2-6.3) H 08/23/18 06:00 Lactic Acid 1.6 mmol/L (0.4-2.0) 08/22/18 18:00 Calcium 8.5 mg/dL (8.5-10.1) 08/26/18 05:55 Phosphorus 3.7 mg/dL (2.5-4.9) 08/26/18 05:55 Magnesium 2.2 mg/dL (1.8-2.4) 08/26/18 05:55 Total Bilirubin 0.5 mg/dL (0.2-1) 08/26/18 05:55 Direct Bilirubin 0.1 mg/dL (0.0-0.2) 08/25/18 12:30 AST 35 U/L (15-37) 08/26/18 05:55 ALT 61 U/L (13-61) 08/26/18 05:55 Alkaline Phosphatase 39 U/L (45-117) L 08/26/18 05:55 Creatine Kinase 298 IU/L (26-308) 08/24/18 06:00 Creatine Kinase Index 0.3 % (0.0-5.0) 08/24/18 06:00 CK-MB (CK-2) 1.1 ng/mL (0.5-3.6) 08/24/18 06:00 Troponin I 0.03 ng/ml (0.00-0.05) 08/25/18 16:00 Total Protein 5.8 g/dl (6.4-8.2) L 08/26/18 05:55 Albumin 2.5 g/dl (3.4-5.0) L 08/26/18 05:55 TSH 0.48 uIU/ml (0.358-3.74) 08/26/18 05:55 Urine Color Yellow 08/22/18 23:20 Urine Appearance Clear 08/22/18 23:20 Urine pH 5.0 (5.0-8.0) 08/22/18 23:20 Ur Specific Sherman 1.017 (1.010-1.035) 08/22/18 23:20 Urine Protein 1+ (NEGATIVE) H 08/22/18 23:20 Urine Glucose (UA) 1+ (NEGATIVE) H 08/22/18 23:20 Urine Ketones Negative (NEGATIVE) 08/22/18 23:20 Urine Blood 1+ (NEGATIVE) H 08/22/18 23:20 Urine Nitrite Negative (NEGATIVE) 08/22/18 23:20 Urine Bilirubin Negative (<2.0 mg/dL) 08/22/18 23:20 Urine Urobilinogen Negative mg/dL (0.2-1.0) 08/22/18 23:20 Ur Leukocyte Esterase Negative (NEGATIVE) 08/22/18 23:20 Urine WBC (Auto) 1 /hpf (3-5) 08/22/18 23:20 Urine RBC (Auto) None /hpf (0-3) 08/22/18 23:20 Ur Epithelial Cells Rare /HPF (FEW) 08/22/18 23:20 Urine Mucus Few 08/22/18 23:20 Opiates Screen Negative ng/ml (VFNZJU=897) 08/23/18 00:00 Methadone Screen Negative ng/ml (SDQERJ=452) 08/23/18 00:00 Barbiturate Screen Negative ng/ml (FTNEZM=163) 08/23/18 00:00 Phencyclidine Screen Negative ng/ml (CUTOFF=25) 08/23/18 00:00 Ur Amphetamines Screen Negative ng/ml (LBSWCR=814) 08/23/18 00:00 MDMA (Ecstasy) Screen Negative ng/ml (MQJLDG=533) 08/23/18 00:00 Benzodiazepines Screen Negative ng/ml (VURAGB=853) 08/23/18 00:00 Cocaine Screen Negative ng/ml (AEFOMV=286) 08/23/18 00:00 U Marijuana (THC) Screen Negative ng/ml (CUTOFF=50) 08/23/18 00:00 Hepatitis A IgM Ab Negative (Negative) 08/23/18 05:40 Hep Bs Antigen Negative (Negative) 08/23/18 05:40 Hep B Core IgM Ab Negative (Negative) 08/23/18 05:40 Hepatitis C Antibody <0.1 s/co ratio (0.0-0.9) 08/23/18 05:40 Influenza A (Rapid) Positive A 08/22/18 18:00 Influenza B (Rapid) Negative 08/22/18 18:00 Assessment/Plan ECG #1: SVT 160s bpm (? long R-P), nonsp ST-Ts (no prior) ECG #2: afib > flutter, nonsp TWAs tele: afib, rate mostly controlled. occasional brief regino, pt asypmtomatic CXR: some congestive changes. no effusion. no infiltrate. echo nl LV function, impaired relaxation, tr to mild MR, mild to mod TR, RVSP elevated 50 mmHg, mod pulm HTN flu A: -per hospitalist -no signs/sx suspicious for chf afib/flutter, rapid HR: -new dx, in setting of acute sepsis/hi fever from flu -echo nl LV function -CHADS VASC 2 (dx HTN urgency, DM here). -d/w'd pt who denies etoh, falls/head trauma, hi risk activities, PUD, GIB or other bleeding history. advised relative risk of cva vs bleed from AC. doesn't want warfarin b/c mother was on this and caused complications. reviewed data with him regarding NOAC vs warfarin--agrees to NOAC. - continue xarelto -cont dilt for rate control, will change to long acting today hypertensive urgency: -no prior known dx of HTN -BP very elevated here initially (diastolic)--now improved -cont diltiazem -trend BP--low threshold add ARB elev trop -trop indeterminate range, flat trend, not c/w ACS -ECG x 2 non-ischemic. DM: -new dx -A1c 7.0 -per hospitalist elev LFTs: -transaminases mildly up--viral syndrome? -per hospitalist pulm HTN - noted on echo, moderate - consider outpt sleep study
[2018-08-26] MEDS: RIVAROXABAN 20 MG TABLET PO SCH (17:10)
--- NOTE | 2018-08-26 18:18 | PN ---
Teaching Attending Note Name of Resident: Shawna Thacker ATTENDING PHYSICIAN STATEMENT I saw and evaluated the patient. I reviewed the resident's note and discussed the case with the resident. I agree with the resident's findings and plan as documented. SUBJECTIVE: no SOB, no palpitations . OBJECTIVE: NAD, AAox 3 CV: irreg irreg . no mRG Lungs: bilateral course crackles Ext : trace edema ASSESSMENT AND PLAN: 63 y/o man with no significant PMH who presented with fever and was found to have Infulenza A and A fib with RVR 1- Sepsis from Influenza A and RLL PNA : improved - tamiflu and ceftriaxone day 4 - will ask ID if we can switch to po Abx . 2- A fib with RVR : with episodes of bradycardia and pauses . on tele , HR vary between 31-100 . still in A fib - tcont cardizem, switched to CD. - cont xarelto. coverred by insurance - needs sleep study as out pt 3- New onset DM ; cont SSI - will start po agents as out pt , metformin 4- Transaminitis : likely due to viral illness on background of fatty liver. - LFTSnormalized 5- HTN urgency : still elevated add losartan 25 daily dispo : dc is pending change to po abx
--- NOTE | 2018-08-26 18:28 | PN ---
Physical Exam: SUBJECTIVE: Patient seen and examined at bedside this morning. Patient has no new complaints. He reports feeling better. On tele, patient had episodes of tachycardia at the 140s and regino at 40s. He remains asymptomatic. Denies any chest pain, SOB, palpitations, headache, dizziness. OBJECTIVE: Vital Signs Period Temp Pulse Resp BP Sys/Luqeu Pulse Ox Last 24 Hr 97.5 F-98.5 F 83-96 18-20 135-167/66-99 98-98 GENERAL: The patient is awake, alert, and fully oriented, not in distress HEAD: Normal with no signs of trauma. EYES: PERRLA, EOMI, sclerae anicteric, conjunctivae clear. ENT: Ears normal, nares patent, oropharynx clear without exudates, moist mucous membranes. NECK: Trachea midline, full range of motion, supple. LUNGS:+rhonchi bilaterally. No wheezing or crackles appreciated. HEART: Regular rate and rhythm, S1, S2 without murmur, rub or gallop. ABDOMEN: Soft, nontender, nondistended, normoactive bowel sounds. EXTREMITIES: 2+ pulses, warm, well-perfused, no edema NEUROLOGICAL: Cranial nerves II through XII grossly intact. Normal speech, gait not observed. PSYCH: Normal mood, normal affect. SKIN: Warm, dry, normal turgor, no rashes or lesions noted Laboratory Results - last 24 hr 08/26/18 08/26/18 08/26/18 05:55 05:55 06:14 WBC 6.6 RBC 5.06 Hgb 14.0 Hct 42.7 MCV 84.3 MCH 27.6 MCHC 32.7 RDW 13.5 Plt Count 281 D MPV 9.8 Absolute Neuts (auto) 2.9 Neutrophils % 44.5 Lymphocytes % 32.0 Monocytes % 17.7 H Eosinophils % 5.3 H Basophils % 0.5 Nucleated RBC % 0 Sodium 140 Potassium 4.1 Chloride 102 Carbon Dioxide 34 H Anion Gap 3 L BUN 9 Creatinine 0.7 Creat Clearance w eGFR > 60 POC Glucometer 132 Random Glucose 122 H Calcium 8.5 Phosphorus 3.7 Magnesium 2.2 Total Bilirubin 0.5 AST 35 ALT 61 Alkaline Phosphatase 39 L Total Protein 5.8 L Albumin 2.5 L TSH 0.48 08/26/18 08/26/18 11:04 16:09 WBC RBC Hgb Hct MCV MCH MCHC RDW Plt Count MPV Absolute Neuts (auto) Neutrophils % Lymphocytes % Monocytes % Eosinophils % Basophils % Nucleated RBC % Sodium Potassium Chloride Carbon Dioxide Anion Gap BUN Creatinine Creat Clearance w eGFR POC Glucometer 207 136 Random Glucose Calcium Phosphorus Magnesium Total Bilirubin AST ALT Alkaline Phosphatase Total Protein Albumin TSH Active Medications Generic Name Dose Route Start Last Admin Trade Name Freq PRN Reason Stop Dose Admin Acetaminophen 650 mg 08/25/18 15:57 Tylenol - PO Q6H PRN Fever Or Pain Atropine Sulfate 0.4 mg 08/25/18 05:52 Atropine Injection - IVPUSH ONCE PRN MAP<65mm Hg OR SBP <90 Cefpodoxime Proxetil 200 mg 08/27/18 10:00 Vantin - PO BID [facility] Diltiazem HCl 5 mg 08/25/18 12:35 Cardizem Injection - IVPUSH Q4H PRN TACHYCARDIA Diltiazem HCl 240 mg 08/26/18 11:30 08/26/18 12:08 Cardizem Cd - PO 240 mg DAILY [facility] Administration Insulin Aspart 1 vial 08/23/18 11:00 08/26/18 16:29 Novolog Vial Sliding Scale - SQ Not Given TIDAC [facility] Protocol Losartan Potassium 25 mg 08/27/18 10:00 Cozaar - PO DAILY [facility] Metoprolol Tartrate 5 mg 08/22/18 23:20 08/23/18 09:04 Lopressor Injection - IVPUSH 5 mg Q4H PRN Administration HYPERTENSION Oseltamivir Phosphate 75 mg 08/23/18 10:00 08/26/18 09:38 Tamiflu - PO 08/28/18 09:59 75 mg BID [facility] Administration Rivaroxaban 20 mg 08/23/18 18:00 08/26/18 17:10 Xarelto - PO 20 mg DAILY@1800 [facility] Administration ASSESSMENT/PLAN: Patient is a 63 year old male with no significant past medical history, presented with fever and nonproductive cough for 6 days. At the ED, patient was noted to have A.fib with RVR #Sepsis 2/2 Flu: improving -Influenza A - positive -ID (Dr. Hammer) consulted. Recommendations appreciated. -Continue Tamiflu 75 mg BID day 4. Will complete 10 doses. -Ceftriaxone 2gm daily day 4 --> Will switch to PO Cefpodoxime 200mg BID -CXR: no infiltrates, congestive changes -Blood and urine cx - no growth -Urine Legionella antigen - negative #New onset Atrial fibrillation -likely triggered by sepsis 2/2 flu -Cardiology (Dr. Lund) consulted. Recommendations appreciated. -Continue Cardizem 60mg q6h --> Will change to long acting Cardizem 240mg daily. -IV Cardizem 5mg PRN for tachycardia -Echo - EF 65%. The transmitral spectral Doppler flow pattern is suggestive of impaired LV relaxation. LA is mildly dilated. Trace to mild MR. Mild to moderate TR. RV systolic pressure is elevated at 50mmHg. There is moderate pulmonary HTN. -CHADS VASc - 2 -Continue Xarelto 20mg daily -EP evaluation not indicated at this time. -Sleep screen ordered -Sleep study as outpatient #Hypertension -No prior hx of HTN -Cardizem 60mg q6h --> 240mg daily -Cardiology consulted. Recommendations appreciated. -Monitor BP -Low threshold - may add ARB #Troponinemia -0.12 --> 0.03 -likely 2/2 demand ischemia -EKG: Atrial fibrillation, no ST-T wave abnormalities -Echo #Hyperglycemia -HbA1c 7.0 -BGM TIDAC -Insulin sliding scale implemented -Will need follow-up as outpatient for further management #Transaminitis: improving -RUQ US: Slightly coarse echotexture of the liver, correlate with liver enzymes to rule out mild fatty infiltration. Multiple gallstones without sonographic evidence of acute cholecystitis. -Hepatitis panel - negative -Urine toxicology - negative #FEN -Not on any standing fluids. -Electrolytes wnl, routine bmp monitoring -Diabetic diet, low fat and low sodium diet #Prophylaxis -Xarelto 20mg daily #Disposition -full code -admit to tele Visit type - Emergency Visit Emergency Visit: Yes ED Registration Date: 08/22/18 Care time: The patient presented to the Emergency Department on the above date and was hospitalized for further evaluation of their emergent condition. - New Patient This patient is new to me today: No - Critical Care Critical Care patient: No
[2018-08-27] MEDS ORDERED: guaiFENesin 200 MG/10 ML 10 ML UNIT-DOSE CUPS PO ONE (01:59)
--- NOTE | 2018-08-27 02:59 | HOSP ---
Physical Examination Vital Signs: Vital Signs Temperature 98.1 F 08/27/18 02:00 Pulse Rate 87 08/27/18 02:00 Respiratory Rate 18 08/27/18 02:00 Blood Pressure 152/82 08/27/18 02:00 O2 Sat by Pulse Oximetry (%) 98 08/26/18 21:00 Labs: CBC, BMP 08/26/18 05:55 08/26/18 05:55 <Mulugeta Slater - Last Filed: 08/27/18 02:59> Vital Signs: Vital Signs Temperature 97.9 F 08/27/18 14:00 Pulse Rate 103 H 08/27/18 17:05 Respiratory Rate 8 L 08/27/18 14:00 Blood Pressure 144/75 08/27/18 14:00 O2 Sat by Pulse Oximetry (%) 97 08/27/18 17:05 Labs: CBC, BMP 08/27/18 06:00 08/27/18 06:00 <Calvin Florentino - Last Filed: 09/06/18 20:04> Hospitalist Encounter Assessment: paged by nurse. pt having multiple episodes of intermittent regino (25-30s) on tele while sleeping. similar to 08/25/18. pt has been asymptomatic w/ no complaints of cp, sob, TAM, etc... pt examined at bedside BP 163/99, HR 85s PE lying in bed comfortable irregularly irregular S1 S2 no m/r/g rhonci b/l Rhythm strips reviewed. A-fib/futter w/ bradycardia pt presentation similar to 08/25/18 Cardiology called and made aware. No further ercs at this time will keep pacer pads nearby in case of sxs will cont to monitor <Mulugeta Slater - Last Filed: 08/27/18 02:59> Outcome: Seen and examined;agree with all the above aside form as edited by me in my own note. Thank you. Was present for all vital parts of encounter; plan discussed with me. Agree with above as documented by the resident. <Calvin Florentino - Last Filed: 09/06/18 20:04> Visit type - Emergency Visit Emergency Visit: Yes ED Registration Date: 08/22/18 Care time: The patient presented to the Emergency Department on the above date and was hospitalized for further evaluation of their emergent condition. - New Patient This patient is new to me today: Yes Date on this admission: 08/27/18 - Critical Care Critical Care patient: No <Mulugeta Slater - Last Filed: 08/27/18 02:59>
[2018-08-27] MEDS: INSULIN SLIDING SCALE (NOVOLOG) 1 VIAL SQ SCH ×3 (06:06→17:21)
[2018-08-27 06:22] LABS: BASO % 0.4 % (0-2.0); EOS % 5.7 % (0-4.5); HEMATOCRIT 43.4 % (35.4-49); HEMOGLOBIN 14.2 GM/dL (11.7-16.9); LYMPH % 33.1 % (8-40); MCH 27.7 pg (25.7-33.7); MCHC 32.7 g/dl (32.0-35.9); MEAN CELL VOLUME 84.7 fl (80-96); MEAN PLT VOLUME 9.7 fl (7.5-11.1); MONO % 12.8 % (3.8-10.2); PLATELET COUNT 351 K/MM3 (134-434); RBC 5.12 M/mm3 (4.00-5.60); RDW 13.5 % (11.9-15.9); WHITE BLOOD COUNT 7.7 K/mm3 (4.0-10.0)
[2018-08-27 06:56] LABS: ANION GAP 4 MMOL/L (8-16); BLOOD UREA NITROGEN 12 mg/dL (7-18); CALCIUM 8.6 mg/dL (8.5-10.1); CHLORIDE 101 mmol/L (98-107); CO2 33 mmol/L (21-32); CREATININE 0.8 mg/dL (0.55-1.3); GLUCOSE,RANDOM 117 mg/dL (74-106); MAGNESIUM 2.3 mg/dL (1.8-2.4); PHOSPHOROUS 3.8 mg/dL (2.5-4.9); POTASSIUM 3.8 mmol/L (3.5-5.1); SODIUM 137 mmol/L (136-145)
[2018-08-27] MEDS ORDERED: CEFPODOXIME PROXETIL 200 MG TABLET [NF] PO SCH (10:00)
[2018-08-27] MEDS ORDERED: LOSARTAN POTASSIUM 25 MG TABLET PO SCH (10:00)
[2018-08-27] MEDS ORDERED: PT OWN MED DRAWER 7, Y5N ONE ×2 (10:02→18:00)
[2018-08-27] MEDS: OSELTAMIVIR PHOSPHATE 75 MG CAPSULE PO SCH (10:17)
--- NOTE | 2018-08-27 11:59 | PN ---
Progress Note (short form) - Note Progress Note: Chief Complaint: cough, fever History of Present Illness: no chest pain, palps dizziness, lightheadedness Current Medications Generic Name Dose Route Start Last Admin Trade Name Fretavo PRN Reason Stop Dose Admin Acetaminophen 650 mg 08/25/18 15:57 Tylenol - PO Q6H PRN Fever Or Pain Atropine Sulfate 0.4 mg 08/25/18 05:52 Atropine Injection - IVPUSH ONCE PRN MAP<65mm Hg OR SBP <90 Cefpodoxime Proxetil 200 mg 08/27/18 10:00 08/27/18 10:17 Vantin - PO 200 mg BID CARISSA Administration Diltiazem HCl 5 mg 08/25/18 12:35 Cardizem Injection - IVPUSH Q4H PRN TACHYCARDIA Diltiazem HCl 240 mg 08/26/18 11:30 08/27/18 10:17 Cardizem Cd - PO 240 mg DAILY CARISSA Administration Insulin Aspart 1 vial 08/23/18 11:00 08/27/18 06:06 Novolog Vial Sliding Scale - SQ Not Given TIDAC [facility] Protocol Losartan Potassium 25 mg 08/27/18 10:00 08/27/18 10:17 Cozaar - PO 25 mg DAILY CARISSA Administration Metoprolol Tartrate 5 mg 08/22/18 23:20 08/23/18 09:04 Lopressor Injection - IVPUSH 5 mg Q4H PRN Administration HYPERTENSION Oseltamivir Phosphate 75 mg 08/23/18 10:00 08/27/18 10:17 Tamiflu - PO 08/28/18 09:59 75 mg BID CARISSA Administration Rivaroxaban 20 mg 08/23/18 18:00 08/26/18 17:10 Xarelto - PO 20 mg DAILY@1800 CARISSA Administration Vital Signs Period Temp Pulse Resp BP Sys/Lquue Pulse Ox Last 24 Hr 97.5 F-98.1 F 86-96 18-18 130-169/79-94 98 Constitutional: Yes: Well Nourished, No Distress Eyes: No: Sclera Icterus Respiratory: Yes: Rhonchi (diffuse). No: Accessory Muscle Use, Wheezes Gastrointestinal: Yes: Normal Bowel Sounds. No: Distention, Hepatomegaly, Palpable Mass, Tenderness Cardiovascular: Yes: irreg JVD: No Heart Sounds: Yes: S1, S2. No: Gallop Murmur: No: Systolic Murmur, Diastolic Murmur Extremities: No: Cool, Cyanosis Edema: No Peripheral Pulses: 2+ Left Carotid, 2+ Right Carotid, 2+ Left Doralis Pedis, 2+ Right Dorsalis Pedis Integumentary: No: Jaundice Neurological: Yes: Alert, Oriented (x3) Psychiatric: No: Agitated CBC, BMP 08/27/18 06:00 08/27/18 06:00 Assessment/Plan ECG #1: SVT 160s bpm (? long R-P), nonsp ST-Ts (no prior) ECG #2: afib > flutter, nonsp TWAs tele: afib, rate controlled. occasional brief regino when sleeping, pt asypmtomatic CXR: some congestive changes. no effusion. no infiltrate. echo nl LV function, impaired relaxation, tr to mild MR, mild to mod TR, RVSP elevated 50 mmHg, mod pulm HTN flu A: -per hospitalist -no signs/sx suspicious for chf afib/flutter, rapid HR: -new dx, in setting of acute sepsis/hi fever from flu -echo nl LV function -CHADS VASC 2 (dx HTN urgency, DM here). -d/w'd pt who denies etoh, falls/head trauma, hi risk activities, PUD, GIB or other bleeding history. advised relative risk of cva vs bleed from AC. doesn't want warfarin b/c mother was on this and caused complications. reviewed data with him regarding NOAC vs warfarin--agrees to NOAC. - continue xarelto -cont dilt for rate control, has brief regino when sleeping, asymptomatic, stable for several days on tele, ok to continue dilt and dc tele hypertensive urgency: -no prior known dx of HTN -BP very elevated here initially (diastolic)--now improved -cont diltiazem -trend BP--low threshold add ARB elev trop -trop indeterminate range, flat trend, not c/w ACS -ECG x 2 non-ischemic. DM: -new dx -A1c 7.0 -per hospitalist elev LFTs: -transaminases mildly up--viral syndrome? -per hospitalist pulm HTN - noted on echo, moderate - consider outpt sleep study
[2018-08-27 15:00] VITALS: BP 144/75; TEMP 97.9
--- NOTE | 2018-08-27 15:05 | PN ---
Teaching Attending Note Name of Resident: Shawna Thacker ATTENDING PHYSICIAN STATEMENT I saw and evaluated the patient. I reviewed the resident's note and discussed the case with the resident. I agree with the resident's findings and plan as documented. SUBJECTIVE: No fever or chills. No CP , no cough . OBJECTIVE: NAD, AAox 3 CV: irreg irreg . no mRG Lungs: bilateral course crackles improved Ext : trace edema ASSESSMENT AND PLAN: 63 y/o man with no significant PMH who presented with fever and was found to have Infulenza A and A fib with RVR 1- Sepsis from Influenza A and RLL PNA : improved - tamiflu and Abx day 5 . will need one more dose of tamiflu and vantin 2- A fib with RVR :still with episodes of regino at night time . asymptomatic - cont cardizem - cont xarelto. - Needs sleep study as out pt . instructed importance of this . 3- New onset DM ; - start metformin - prescribed glucometer and instructed to check sugar BID before breakfast and dinner . to send to PCP . he was instructed to call PCP for sugar > 300 and < 70 and to take orange juice. present 4- Transaminitis : likely due to viral illness on background of fatty liver. - LFTS normalized 5- HTN urgency : resolved cont losartan 25 daily , in addition to cardizem dispo : check pre and post and dc ASSESSMENT AND PLAN:
--- NOTE | 2018-08-27 16:50 | PN ---
Progress Note (short form) - Note Progress Note: feels much better today less cough, less congestion no fevers since admission Vital Signs Period Temp Pulse Resp BP Sys/Luque Pulse Ox Last 24 Hr 97.8 F-98.2 F 86-91 8-18 130-169/66-94 98-98 cor-rrr lungs scattered rhonchi abd soft,nt ext no edema a/p Influenza A day #5 tamiflu day #5 antibiotics finish 7 days antibiotcs clinically improved d/w patient and that cough may persist but to seek immediate care if he developes fevers or SOB afib/htn- per cardiology Problem List - Problems (1) Influenza A Code(s): J10.1 - FLU DUE TO OTH IDENT INFLUENZA VIRUS W OTH RESP MANIFEST (2) Tachycardia Code(s): R00.0 - TACHYCARDIA, UNSPECIFIED (3) Abnormal LFTs Code(s): R94.5 - ABNORMAL RESULTS OF LIVER FUNCTION STUDIES (4) Pneumonia Code(s): J18.9 - PNEUMONIA, UNSPECIFIED ORGANISM
--- NOTE | 2018-08-27 17:31 | DS ---
Physical Exam: SUBJECTIVE: Patient seen and examined at bedside this morning. Patient has no complaints and reports feeling okay. Overnight, patient again had episodes of regino on tele. Night team consulted cardio and recommended to continue present management. Patient remains asymptomatic. OBJECTIVE: Vital Signs Period Temp Pulse Resp BP Sys/Luque Pulse Ox Last 24 Hr 97.8 F-98.2 F 86-91 8-18 130-169/66-94 98-98 PHYSICAL EXAM GENERAL: The patient is awake, alert, and fully oriented, not in distress HEAD: Normal with no signs of trauma. EYES: PERRLA, EOMI, sclerae anicteric, conjunctivae clear. ENT: Ears normal, nares patent, oropharynx clear without exudates, moist mucous membranes. NECK: Trachea midline, full range of motion, supple. LUNGS:+scattered rhonchi bilaterally, improved. No wheezing or crackles appreciated. HEART: Regular rate and irregular rhythm, S1, S2 without murmur, rub or gallop. ABDOMEN: Soft, nontender, nondistended, normoactive bowel sounds. EXTREMITIES: 2+ pulses, warm, well-perfused, no edema NEUROLOGICAL: Cranial nerves II through XII grossly intact. Normal speech, gait not observed. PSYCH: Normal mood, normal affect. SKIN: Warm, dry, normal turgor, no rashes or lesions noted LABS Laboratory Results - last 24 hr 08/25/18 08/27/18 08/27/18 16:00 05:27 06:00 WBC 7.7 RBC 5.12 Hgb 14.2 Hct 43.4 MCV 84.7 MCH 27.7 MCHC 32.7 RDW 13.5 Plt Count 351 D MPV 9.7 Absolute Neuts (auto) 3.7 Neutrophils % 48.0 Lymphocytes % 33.1 Monocytes % 12.8 H Eosinophils % 5.7 H Basophils % 0.4 Nucleated RBC % 0 Sodium Potassium Chloride Carbon Dioxide Anion Gap BUN Creatinine Creat Clearance w eGFR POC Glucometer 108 Random Glucose Calcium Phosphorus Magnesium Hep Bs Antibody Non reactive 08/27/18 08/27/18 08/27/18 06:00 11:27 16:49 WBC RBC Hgb Hct MCV MCH MCHC RDW Plt Count MPV Absolute Neuts (auto) Neutrophils % Lymphocytes % Monocytes % Eosinophils % Basophils % Nucleated RBC % Sodium 137 Potassium 3.8 Chloride 101 Carbon Dioxide 33 H Anion Gap 4 L BUN 12 Creatinine 0.8 Creat Clearance w eGFR > 60 POC Glucometer 143 135 Random Glucose 117 H Calcium 8.6 Phosphorus 3.8 Magnesium 2.3 Hep Bs Antibody -CXR: no infiltrates, congestive changes -Echo - EF 65%. The transmitral spectral Doppler flow pattern is suggestive of impaired LV relaxation. LA is mildly dilated. Trace to mild MR. Mild to moderate TR. RV systolic pressure is elevated at 50mmHg. There is moderate pulmonary HTN. -RUQ US: Slightly coarse echotexture of the liver, correlate with liver enzymes to rule out mild fatty infiltration. Multiple gallstones without sonographic evidence of acute cholecystitis. HOSPITAL COURSE: Date of Admission:08/22/18 Date of Discharge: 08/27/18 Patient is a 63 year old male with no significant past medical history, presented with fever and nonproductive cough for 6 days. At the ED, patient was noted to have A.fib with RVR. Cardiology consulted. Patient was started on Cardizem 30mg q6h and was increased to 60mg q6h, which controlled the rate. He was also stated on Xarelto 20mg. During the hospital stay, patient was noted to have episodes of bradycardia. ANAHI was considered and cardio recommended patient to have sleep study done as outpatient. Prior to discharge, patient was switched to Cardizem 240mg daily dosing. Flu swab done and patient was Influenza A positive. ID consulted. Patient was started on Tamiflu 75mg BID and Ceftriaxone 2gm daily. Blood culture and urine legionella were negative. Patient was also noted to have high blood pressure that wasn't controlled on Cardizem alone. Losartan 25mg was added. He was also noted to be hyperglycemic with HbA1c of 7. He was put on insulin sliding scale while in the hospital, and discharged with Metformin. Patient was discharged with instructions to follow-up with PCP and sheeter machine operator, and to complete the Tamiflu and Cefpodoxime for one more dose. Minutes to complete discharge: 40 Discharge Summary Reason For Visit: TACHYCARDIA,ELEVATED TROPONIN LEVEL, INFLUENZA Current Active Problems Abnormal LFTs (Acute) Atrial fibrillation (Acute) Diabetes (Acute) Influenza (Acute) Tachycardia (Acute) Condition: Stable - Instructions Diet, Activity, Other Instructions: Your visit You were admitted to the hospital because you had fever, cough and shortness of breath. You were diagnosed with the Flu. You were started on antibiotics. You were also noted to have abnormal hearth rhythm. You were diagnosed to have a new onset Atrial fibrillation. It means that your heart beats fast and irregularly. This puts you at an increased risk of developing clots that can go to your brain and cause stroke. You were given Cardizem that controlled your heart rate and Xarelto that thins your blood to decrease the risk of forming clots. Cardiology also recommended that you have a sleep study to evaluate for sleep apnea. Please follow-up with Sleep specialist (Dr. Mohr). Your blood pressure and your blood sugar were also noted to be high ( diabetes ) and you were started on new medications to address these problems as well. Medications You were started on new medications. Please take them as prescribe: 1. Cardizem 240mg daily. 2. Xarelto 20mg daily. 3. Losartan 25mg daily. 4. Metformin 500mg daily. 5. Tamiflu 75mg one more dose tonight. 6. Cefpodoxime ( vantin ) 200mg every 12 hours. start tonight at 9 pm. then fro 2 more days Care -Note that Xarelto increases your risk of bleeding. Monitor yourself for bleeding and bruising. If you fall and hit your head you should come to the hospital for imaging. -Metformin is a medication to control your blood sugar levels. Please take note that this can cause stomach upset including diarrhea. -You were prescribed a glucometer to measure your blood sugar. Please check your sugar twice a day before breakfast and before dinner. Please take the log to your doctor. -Eat low sugar, low fat diet and drink plenty of water. -Exercise daily. Follow-up -Follow-up with the sheeter machine operator (Dr. Lund) within 1 week. Please call the office to schedule an appointment. -Follow-up with the Translational Specialist (Dr. Mohr) within 2 weeks. For a sleep study. -Follow-up with the primary care physician within 1 week. You may visit the resident medical clinic at [facility]. You are scheduled on Thursday (09/01/17) at 9am with Dr. Lopez. Additional info Call 911 or go to the ED if with any worsening shortness of breath, fever, chills, headache, dizziness, nausea, vomiting, chest pain, palpitations, abdominal pain, or any new concerns noted. if you have any fever or difficulty breathing. please come back to ER Referrals: [facility] [place] [Provider Group] - 09/01/18 9:00 am Robin Wood MD [Staff Physician] - 1 Week Demetrio Mohr MD [Staff Physician] - 1 Week Disposition: HOME - Home Medications Comprehensive Discharge Medication List: Ambulatory Orders Cefpodoxime Proxetil [Vantin -] 200 mg PO ONCE #1 tablet 08/27/18 Diltiazem Cd [Cardizem Cd -] 240 mg PO DAILY #30 cap.cd.24h 08/27/18 Losartan Potassium [Cozaar -] 25 mg PO DAILY #30 tablet 08/27/18 Miscellaneous Medical Supply [Glucometer Device] 1 each SQ ASDIR #1 kit Miscellaneous Medical Supply [Glucometer Test Strips #100] 1 each SQ ASDIR #1 box 08/27/18 Oseltamivir Phosphate [Tamiflu -] 75 mg PO ONCE #1 capsule 08/27/18 Rivaroxaban [Xarelto -] 20 mg PO DAILY@1800 #30 tablet 08/27/18 metFORMIN XR [Glucophage Xr -] 500 mg PO DAILY #30 tab.sr.24h 08/27/18 This patient is new to me today: No Emergency Visit: Yes ED Registration Date: 08/22/18 Care time: The patient presented to the Emergency Department on the above date and was hospitalized for further evaluation of their emergent condition. Critical Care patient: No - Discharge Referral Referred to [facility] No
[2018-08-27 18:01] VITALS: PULSE 103
--- NOTE | 2018-09-30 07:42 | EKG ---
Test Reason : Blood Pressure : / mmHG Vent. Rate : 075 BPM Atrial Rate : 075 BPM P-R Int : 184 ms QRS Dur : 094 ms QT Int : 440 ms P-R-T Axes : 038 -04 012 degrees QTc Int : 491 ms SINUS RHYTHM WITH PREMATURE ATRIAL COMPLEXES MINIMAL VOLTAGE CRITERIA FOR LVH, MAY BE NORMAL VARIANT NONSPECIFIC T WAVE ABNORMALITY PROLONGED QT ABNORMAL ECG Confirmed by Erich Spears MD ([id number]) on 08/24/2018 2:31:45 PM Also confirmed by Erich Spears MD ([id number]), editor map WALESKA MCGARRY ([id number]) on 09/30/2018 7:42:39 AM Referred By: Keri GRANT Confirmed By:Erich Spears MD
== END 2018-08-27 19:17 | disposition home or self-care (01) | DRG 871 ==
LOC: JER 17:23 → JERBED 20:09 → J4S 08-24 15:47
PROVIDERS: ADMIT Internal Medicine; ATTEND Internal Medicine
DX: A41.89 Other specified sepsis (principal); J09.X1 Influenza due to identified novel influenza A virus with pneumonia; I24.8 Other forms of acute ischemic heart disease; I48.92 Unspecified atrial flutter; I48.91 Unspecified atrial fibrillation; R00.0 Tachycardia, unspecified; J10.1 Influenza due to other identified influenza virus with other respiratory manifestations; E66.8 Other obesity; Z68.35 Body mass index [BMI] 35.0-35.9, adult; Z87.891 Personal history of nicotine dependence; E11.65 Type 2 diabetes mellitus with hyperglycemia; I16.0 Hypertensive urgency; R09.02 Hypoxemia; R94.5 Abnormal results of liver function studies; R60.0 Localized edema; I27.20 Pulmonary hypertension, unspecified; K80.80 Other cholelithiasis without obstruction; I08.1 Rheumatic disorders of both mitral and tricuspid valves
CPT/HCPCS: 36415; 71045-TC-FY; 76705-TC; 80048; 80053; 80074; 80076; 80307; 81003; 81015; 82550; 82553; 82803; 82962; 83036; 83605; 83735; 84100; 84443; 84484; 85025; 85027; 85610; 85730; 86705; 86706; 87040; 87086; 87522; 87804; 87899; 93005; 93010; 93306-TC; 94761; 99285-25; J0131; J7030